=== PATIENT | male | born 1945 | race Caucasian/White ===

== ENCOUNTER 2019-05-20 03:05 | Observation (INO) ==
[2019-05-20] MEDS ORDERED: ASPIRIN CHEW 324 MG PO STA (03:19)
[2019-05-20] MEDS ORDERED: NITROGLYCERIN SL 0.4 MG/TAB TAB SL STA (03:19)
--- NOTE | 2019-05-20 03:24 | Emergency Department Note ---
ED Provider Note Name: SARAI KIRAN Age: 74 M Arrives Via: Walk-In Informant: Patient CC: HANNAH HPI: 74M arrives for evaluation of chest pain. Patient awoke around 11 pm with substernal bandlike chest pain. Pressure like. Radiates to epigastrium. Mild shortness of breath. No palpitations, nausea, vomiting, syncope, lightheadedness. No medications taken for this. Nothing makes better nor worse. Denies recent leg swelling, calf pain, fevers, chills, back pain, headache, rashes, lower abdominal pain, weakness, fatigue, urinary/bowel changes, nor other symptoms. Notes history of CABG 2 years ago. Admits history HTN, DLP. Denies DMII. Previous smoker. No recent trauma nor injuries. ROS: See above HPI for pertinent positives & negatives. A total of 10 systems reviewed and were otherwise negative. Past Medical History:Htn, CAD, DLP, GERD Past Surgical History:CABG Family History:Notes father with CA. Social History:Lives with significant other, former smoker, liberian as language Home Medications:Alirocumab IM, Aspirin, atenolol, lisiopril, nitro, pantoprazole Allergies:Mivacurium, Niacin, Statin Vitals:BP 199/94, P 53, R 16, T 36.3, O2 98% Physical Exam: GENERAL: Patient is anxious appearing and in mild distress. EYES: No scleral icterus, unremarkable pupils. ENT: Mucous membranes moist, no nasal congestion. NECK: No masses appreciated, nomeningismus, trachea is midline. RESPIRATORY: No dyspnea. Clear to auscultation and equal bilaterally. No wheeze, no rhonchi. CARDIOVASCULAR: Regular rate and rhythm.No murmurs, rubs, gallops appreciated. GASTROINTESTINAL: Abdomen soft, non-tender, no peritonitis.Bowel sounds positive.No masses appreciated. BACK: No midline tenderness, no CVA tenderness EXTREMITIES: Normal motion all extremities, no cyanosis, no edema. NEUROLOGIC: Alert and oriented, no acute motor or sensory deficits, no focal weakness, cranial nerves grossly intact. SKIN: No rash, no jaundice, no diaphoresis. ED Course: Prior Medical Record, Triage/Nursing Notes, Medications, Allergies reviewed by Me Vital Signs: reviewed and remarkable for HTN, Sanjiv Labs:Reviewed and remarkable for normal cbc, bmp, trop, lft, lipase Interventions: ASA 324mg PO, SLNTG x 2 Imaging:X ray results are stated below per my interpretation: Chest: 1 view: No infiltrate, no effusion, normal cardiac border. EKG:Per My Interpretation: Indication Chest Pain: Sinus Sanjiv 47 bpm qtc 387, no ectopy no ischemia. No previous for comparison. Consults:[facility]ist will evaluate further Blood pressure:Elevated - Referred to Hospitalist Disposition:Hostpitalization Differentials: ACS, Dissection, HTN Emergeny, Pneumothorax, PE, GERD, PUD, Ga llbladder, amongst other pathologies. Medical Decision Making: Pleasant 74 yr old male with history of CABG a few years ago arrives with HTN and substernal chest pressure. Resolved with SLNTG x 2. No abdominal TTP though did have a bit of epigastric discomfort. LFTs/Lipase OK. EKG with sinus sanjiv and no previous for comparison. Trop negative initially but quite early for cardiac rule out. Labs unremarkable. CXR OK. Patient feeling well and BP much improved post nitro as well. [facility] patient thus [facility] Management discussed with [facility] who agree to have patient stay here for rule out. Hospitalist consulted for further management and patient comfortable with plan. Impression: Substernal Chest Pain Hypertensive Emergency Otis Rapp MD Impression & Plan Substernal chest pain, Hypertensive emergency Past Med/Surg History Social History Preferred Language: Citizen Of [place] Feels Safe at Home: Yes Smoking Status: Former smoker Results & Data Vital Signs Vital Signs - 24 hr 05/20/19 03:07 05/20/19 03:16 05/20/19 03:51 Temperature 36.3 C L Temperature Source Oral Sepsis Recent Fever Within 48 Hours No Sepsis New/Unexplained Change in Mental Status No Sepsis Action Taken by Nursing No Action Required Pulse Oximetry Post Tiitration 99 Pulse Rate 53 L 45 L 50 L Pulse Rate from SpO2 Sensor 47 L 51 L Respiratory Rate 16 15 17 Blood Pressure 199/94 H 180/87 H 139/84 Blood Pressure Mean 129 118 102 Pulse Oximetry 98 98 97 Oxygen Delivery Method Room Air Room Air 05/20/19 04:00 05/20/19 04:20 05/20/19 04:30 Temperature Temperature Source Sepsis Recent Fever Within 48 Hours Sepsis New/Unexplained Change in Mental Status Sepsis Action Taken by Nursing Pulse Oximetry Post Tiitration Pulse Rate 53 L 47 L 51 L Pulse Rate from SpO2 Sensor 54 L 49 L 52 L Respiratory Rate 14 15 19 Blood Pressure 123/80 Blood Pressure Mean 94 Pulse Oximetry 92 96 96 Oxygen Delivery Method Laboratory Data Result diagrams: 05/20/19 03:16 05/20/19 03:16 Lab Results 05/20/19 05/20/19 Range/Units 03:16 03:16 WBC 5.88 (4.8-10.8) K/uL RBC 4.41 L (4.7-6.1) M/uL Hgb 13.9 L (14.0-18.0) g/dL Hct 41.0 L (42-52) % MCV 93.0 (80-100) fL MCH 31.5 (25-34) pg MCHC 33.9 (32-36) g/dL RDW Std Deviation 44.6 (36.4-46.3) fL RDW Coeff of Grazyna 13.1 (11.5-14.5) % Plt Count 172 (130-400) K/uL MPV 10.0 (7.4-10.4) fL Immature Gran % (Auto) 0.2 % Neut % (Auto) 65.6 % Lymph % (Auto) 20.9 % [place] % (Auto) 8.7 % Eos % (Auto) 4.3 % Baso % (Auto) 0.3 % Immature Gran # (Auto) 0.01 (0.00-0.02) K/uL Neut # (Auto) 3.86 (1.4-6.5) K/uL Lymph # (Auto) 1.23 (1.2-3.4) K/uL [place] # (Auto) 0.51 (0.11-0.59) K/uL Eos # (Auto) 0.25 (0-0.5) K/uL Baso # (Auto) 0.02 (0-0.2) K/uL Sodium 138 (136-145) mmol/L Potassium 3.9 (3.5-5.1) mmol/L Chloride 104 (98-107) mmol/L Carbon Dioxide 28 (21-32) mmol/L Anion Gap 6.0 (3-11) BUN 19 H (7-18) mg/dl Creatinine 1.33 (0.6-1.4) mg/dl Est Cr Clr Drug Dosing 61.9 ml/min Est GFR ( Amer) 61.0 Est GFR (Non-Af Amer) 52.7 BUN/Creatinine Ratio 14.4 (10-20) Glucose 122 H (70-99) mg/dl Calcium 8.5 (8.5-10.1) mg/dl Total Bilirubin 0.5 (0.2-1) mg/dl Direct Bilirubin 0.1 (0-0.2) mg/dl AST 23 (15-37) U/L ALT 22 (12-78) U/L Alkaline Phosphatase 68 (45-117) U/L Troponin I < 0.015 (0-0.045) ng/ml Total Protein 7.0 (6.4-8.2) gm/dl Albumin 3.6 (3.4-5.0) gm/dl Lipase 184 (73-393) U/L Administered Medications Discontinued Medications Aspirin (Aspirin) 324 mg PO NOW STA Stop: 05/20/19 03:20 Last Admin: 05/20/19 03:25 Dose: 324 mg Documented by: [id number] Nitroglycerin (Nitrostat) 0.4 mg SL NOW STA Stop: 05/20/19 03:20 Last Admin: 05/20/19 03:25 Dose: 0.4 mg Documented by: [id number] Discharge Plan Visit Data Chief Complaint: Chest Pain Stated Complaint: CHEST PAIN ED Provider: Otis Rapp Discharge Problem: Substernal chest pain, Hypertensive emergency Forms Stand Alone Forms: Call Back Authorization, [facility] Prescriptions Prescriptions: No Action Praluent Pen 150 mg/mL pen injector 150 mg SQ Q14D RF: 0 pantoprazole [Protonix] 20 mg tablet,delayed release (DR/EC) 20 mg PO DAILY RF: 0 lisinopril 5 mg tablet 5 mg PO DAILY RF: 0 aspirin [Adult Aspirin Regimen] 81 mg tablet,delayed release (DR/EC) 81 mg PO DAILY RF: 0 atenolol 25 mg tablet 25 mg PO DAILY RF: 0 nitroglycerin [Nitrostat] 0.4 mg tablet, sublingual 0.4 mg SL Q5M PRN (Reason: Chest Pain) RF: 0 simethicone 250 mg Capsule 250 mg PO DAILY RF: 0 Referrals Referrals: Florentino Pulido [Primary Care Provider] -
[2019-05-20 03:31] LABS: Basophils # (auto) 0.02 K/uL (0-0.2); Basophils % (auto) 0.3 %; Eosinophils # (auto) 0.25 K/uL (0-0.5); Eosinophils % (auto) 4.3 %; Hemoglobin 13.9 g/dL (14.0-18.0); Immature Granulocytes # (auto) 0.01 K/uL (0.00-0.02); Immature Granulocytes % (auto) 0.2 %; Lymphocytes # (auto) 1.23 K/uL (1.2-3.4); Lymphocytes % (auto) 20.9 %; Mean Corpuscular Hemoglobin 31.5 pg (25-34); Mean Corpuscular Hgb Conc 33.9 g/dL (32-36); Monocytes # (auto) 0.51 K/uL (0.11-0.59); Monocytes % (auto) 8.7 %; Neutrophils # (auto) 3.86 K/uL (1.4-6.5); Neutrophils % (auto) 65.6 %; Platelet Count 172 K/uL (130-400); RDW Coefficient of Variation 13.1 % (11.5-14.5); RDW Standard Deviation 44.6 fL (36.4-46.3); Red Blood Count 4.41 M/uL (4.7-6.1); White Blood Count 5.88 K/uL (4.8-10.8)
[2019-05-20 03:51] LABS: Alanine Aminotransferase 22 U/L (12-78); Albumin Level 3.6 gm/dl (3.4-5.0); Aspartate Aminotransferase 23 U/L (15-37); BUN Creatinine Ratio 14.4 (10-20); Bilirubin Direct 0.1 mg/dl (0-0.2); Blood Urea Nitrogen 19 mg/dl (7-18); Calcium 8.5 mg/dl (8.5-10.1); Carbon Dioxide 28 mmol/L (21-32); Chloride 104 mmol/L (98-107); Creatinine Clr Calc Pharmacy 61.9 ml/min; Est GFR (Non-African American) 52.7; Glucose 122 mg/dl (70-99); Lipase 184 U/L (73-393); Potassium 3.9 mmol/L (3.5-5.1); Sodium 138 mmol/L (136-145)
[2019-05-20 03:56] LABS: Alkaline Phosphatase 68 U/L (45-117); Bilirubin,Total 0.5 mg/dl (0.2-1); Troponin I < 0.015 ng/ml (0-0.045)
--- NOTE | 2019-05-20 04:59 | History & Physical Report ---
Date of Service May 20, 2019 Assessment & Plan (1) Substernal chest pain: This is a 74-year-old male with history of CABG x3, 2 years ago who presents with substernal chest pressure associated with the onset of bloating since 11 PM. He states the pain began at 11 PM which was 30 minutes after he tried to go to bed. He states the pain took his breath away. He states he is tried walking around in order to promote flatulence and normally this helps him, but this evening it did not and he stayed up all night with the pain. Because the pain in his abdomen and chest persisted for 4 hours he called EMS. He did not take any of his nitroglycerin that he has at home. He endorses some shortness of breath with the pain. He also endorses elevated blood pressure with the pain, notes his systolic was 200. He denies orthopnea, paroxysmal nocturnal dyspnea, bilateral leg swelling, dysuria, diarrhea, constipation. He denies any radiation of the pain into his arms or jaw. He denies any blurred vision or syncope. He notes he has a history of low heart rate but denies any issues with this. He is followed by his associate faculty with the MD. He saw them 2 weeks ago, no changes to medications were made. He denies a history of sleep apnea. Social history: He lives with his partner Irina. Quit smoking in 1995. Occasional alcohol use up to 2 drinks in one sitting. No drug use. ED course: Nitrostat and aspirin. Assessment: Atypical chest pain -EKG says sinus bradycardia, no dynamic ST changes. -CXR appears nonacute. -Initial troponin negative. -CBC and BMP otherwise unremarkable. -Pain is resolved with nitroglycerin. -Vitals remained stable, no additional anti-hypertensives were necessary in the emergency room. Plan: -Observe on telemetry -Daily EKGs -Trend troponins -TTE FEN/GI: HH diet DVT ppx: heparin sq CODE STATUS: FULL as discussed with pt -- however he states he would not want prolonged mechanical ventilation if there was no meaningful hope of recovery. He does have children and a partner who understand his wishes. DISPO: med/tele (2) Benign essential hypertension: Continue home atenolol, lisinopril. 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 14 days. (4) Bloating: Continue home simethicone. -Discussed with patient physiologic mechanism of pain with bloating that would increase his blood pressure. Recommend checking blood pressure when bloating symptoms resolve and patient is at rest for at least 5 minutes. Patient verbalized understanding with this. He has ongoing follow-up with gastroente rology including an upcoming hydrogen breath test. History of Present Illness Chief Complaint: Substernal chest pressure associated with bloating Primary Care Provider: Florentino Pulido This is a 74-year-old male with history of CABG x3, 2 years ago who presents with substernal chest pressure associated with the onset of bloating since 11 PM. He states the pain began at 11 PM which was 30 minutes after he tried to go to bed. He states the pain took his breath away. He states he is tried walking around in order to promote flatulence and normally this helps him, but this evening it did not and he stayed up all night with the pain. Because the pain in his abdomen and chest persisted for 4 hours he called EMS. He endorses some shortness of breath with the pain. He also endorses elevated blood pressure with the pain, notes his systolic was 200. He denies orthopnea, paroxysmal nocturnal dyspnea, bilateral leg swelling, dysuria, diarrhea, constipation. He denies any radiation of the pain into his arms or jaw. He denies any blurred vision or syncope. He notes he has a history of low heart rate but denies any issues with this. He is followed by his associate faculty with the MD. He saw them 2 weeks ago, no changes to medications were made. He denies a history of sleep apnea. Social history: He lives with his partner Irina. Quit smoking in 1995. Occasional alcohol use up to 2 drinks in one sitting. No drug use. ED course: Nitrostat and aspirin. Allergies Allergy/AdvReac Type Severity Reaction Status Date / Time azithromycin [From Zithromax] AdvReac Intermediate Vomiting Verified 05/20/19 03:45 mivacurium AdvReac Intermediate VOMITING Verified 05/20/19 03:45 niacin AdvReac Intermediate HEAT Verified 05/20/19 03:45 FLASHES CHOLESTEROL MEDICATIONS AdvReac Intermediate MUSCLE Uncoded 05/20/19 03:45 SORENESS, CAN'T WALK Home Medications Home Medications Medication Instructions Recorded Confirmed Type alirocumab 150 mg/mL subcutaneous 150 mg SQ Q14D 04/27/19 05/20/19 History pen injector aspirin 81 mg tablet,delayed 81 mg PO DAILY 04/27/19 05/20/19 History release atenolol 25 mg tablet 25 mg PO DAILY 04/27/19 05/20/19 History lisinopril 5 mg tablet 5 mg PO DAILY 04/27/19 05/20/19 History nitroglycerin 0.4 mg sublingual 0.4 mg SL Q5M PRN 04/27/19 05/20/19 History tablet pantoprazole 20 mg tablet,delayed 20 mg PO DAILY 04/27/19 05/20/19 History release simethicone 250 mg PO DAILY 05/20/19 05/20/19 History Past Med/Surg History Medical History Bloating (Chronic) Coronary artery disease with hx of myocardial infarct w/o hx of CABG (Chronic) Benign essential hypertension (Chronic) Social History Preferred Language: [place] Communication Ability: Effective Health Technical Writer Required: No Beliefs That Will Affect Care: None Current Living Situation: Alone Other Information That Helps Us Care for You: No Feels Safe at Home: Yes Safety Concerns: Feels Safe At This Time Smoking Status: Never smoker Hx Alcohol Use: No Hx Substance Use: No Review of Systems Review of Systems: +chest pain. He endorses some shortness of breath with the pain. He also endorses elevated blood pressure with the pain, notes his systolic was 200. He denies orthopnea, paroxysmal nocturnal dyspnea, bilateral leg swelling, dysuria, diarrhea, constipation. He denies any radiation of the pain into his arms or jaw. He denies any blurred vision or syncope. He notes he has a history of low heart rate but denies any issues with this. Physical Exam Physical Exam: Vitals noted and within normal limits with the exception of mild bradycardia GENERAL: Awake, alert to person, place, and time, nontoxic-appearing, in no distress. HENT: Normocephalic, atraumatic. Mucus membranes appear moist. EYES: Normal conjunctiva. Sclera non-icteric. EOMI. NECK: Supple. Full range of motion. No JVD. RESPIRATORY: Clear to auscultation. Normal work of breathing. CARDIAC: Regular rate, normal rhythm. Extremities warm and well perfused, 2+ radial pulses bilaterally; 2+ posterior tibialis pulses bilaterally. ABDOMEN: Soft, non-distended. No tenderness to palpation in all four quadrants. No rebound or guarding. No masses. Bowel sounds are normal. LOWER EXTREMITIES: Inspection of calves reveal equal size bilaterally. They are non-tender. No edema. No discoloration. NEURO: No gross focal motor deficits noted. Sensation in tact. CN II-XII grossly in tact. . SKIN: Rash not present. No jaundice noted. Significant lesions not present. PSYCH: Appropriate mood and affect. Cooperative. Exam as done by Tamie Lazo MD, [employer]. Results & Data Vital Signs (Past 12 Hours) Vital Signs Temp Pulse Resp BP Pulse Ox 05/20/19 04:30 51 L 19 96 05/20/19 04:20 47 L 15 96 05/20/19 04:00 53 L 14 123/80 92 05/20/19 03:51 50 L 17 139/84 97 05/20/19 03:16 45 L 15 180/87 H 98 05/20/19 03:07 36.3 C L 53 L 16 199/94 H 98 Laboratory Results 05/20/19 05/20/19 Range/Units 03:16 03:16 WBC 5.88 (4.8-10.8) K/uL RBC 4.41 L (4.7-6.1) M/uL Hgb 13.9 L (14.0-18.0) g/dL Hct 41.0 L (42-52) % MCV 93.0 (80-100) fL MCH 31.5 (25-34) pg MCHC 33.9 (32-36) g/dL RDW Std Deviation 44.6 (36.4-46.3) fL RDW Coeff of Grazyna 13.1 (11.5-14.5) % Plt Count 172 (130-400) K/uL MPV 10.0 (7.4-10.4) fL Immature Gran % (Auto) 0.2 % Neut % (Auto) 65.6 % Lymph % (Auto) 20.9 % [place] % (Auto) 8.7 % Eos % (Auto) 4.3 % Baso % (Auto) 0.3 % Immature Gran # (Auto) 0.01 (0.00-0.02) K/uL Neut # (Auto) 3.86 (1.4-6.5) K/uL Lymph # (Auto) 1.23 (1.2-3.4) K/uL [place] # (Auto) 0.51 (0.11-0.59) K/uL Eos # (Auto) 0.25 (0-0.5) K/uL Baso # (Auto) 0.02 (0-0.2) K/uL Sodium 138 (136-145) mmol/L Potassium 3.9 (3.5-5.1) mmol/L Chloride 104 (98-107) mmol/L Carbon Dioxide 28 (21-32) mmol/L Anion Gap 6.0 (3-11) BUN 19 H (7-18) mg/dl Creatinine 1.33 (0.6-1.4) mg/dl Est Cr Clr Drug Dosing 61.9 ml/min Est GFR ( Amer) 61.0 Est GFR (Non-Af Amer) 52.7 BUN/Creatinine Ratio 14.4 (10-20) Glucose 122 H (70-99) mg/dl Calcium 8.5 (8.5-10.1) mg/dl Total Bilirubin 0.5 (0.2-1) mg/dl Direct Bilirubin 0.1 (0-0.2) mg/dl AST 23 (15-37) U/L ALT 22 (12-78) U/L Alkaline Phosphatase 68 (45-117) U/L Troponin I < 0.015 (0-0.045) ng/ml Total Protein 7.0 (6.4-8.2) gm/dl Albumin 3.6 (3.4-5.0) gm/dl Lipase 184 (73-393) U/L Supervising Physician Co-Signing Physician Notes Attending addendum: I have physically seen this patient, have supervised the medical residents act ivities, and agree with the H&P unless as otherwise noted. Assessment and Plan: Substernal chest pain with shortness of breath/CABG x3/CAD/history of OK- The patient will be admitted to telemetry for serial cardiac enzymes, serial EKG's, cardiac rhythm monitoring and a 2-D echocardiogram with Dopplers. Continue home medications of atenolol, lisinopril and aspirin 81 mg daily. Abdominal bloating may be anginal equivalent. GERD/abdominal bloating- Continue pantoprazole 20 mg daily. Simethicone as directed. Remainder of orders and notations as noted. PG Care Time/CCT Total # of Minutes Spent Total Time Spent with Patient: Total time spent is greater than 50% in coordination of care (as documented) at patient's floor/unit and/or counseling patient: Resident Activity Tracking Resident Involvement: Resident Care Provided Care Provided: Adult Hospital Medicine
[2019-05-20] MEDS ORDERED: POLYETHYLENE (MIRALAX) 17 GM PACK PO PRN (06:47)
[2019-05-20] MEDS ORDERED: MAGNESIUM HYDROXIDE SUSP 30 ML UDC PO PRN (06:47)
[2019-05-20] MEDS ORDERED: ALUMINUM/MAGNESIUM SUSP 30 ML UDC PO PRN (06:47)
[2019-05-20] MEDS ORDERED: NITROGLYCERIN SL 0.4 MG/TAB TAB SL PRN ×2 (06:47)
[2019-05-20] MEDS ORDERED: ACETAMINOPHEN 325 MG TAB PO PRN (06:47)
--- NOTE | 2019-05-20 06:56 | XRay Report ---
XR chest 1V portable CLINICAL HISTORY: Substernal CP COMPARISON STUDY: No previous studies for comparison. FINDINGS: There are postsurgical changes of a midline sternotomy. There is no failure. There is no fo sangita pulmonary consolidation. There are no pleural effusions.[ IMPRESSION: No active disease in the chest. Electronically signed by: Arias Smith M.D. 05/20/2019 6:55 AM
[2019-05-20] MEDS ORDERED: SIMETHICONE 80 MG CHEW PO SCH (09:00)
[2019-05-20] MEDS ORDERED: ASPIRIN 81 MG ECTAB PO SCH (09:00)
[2019-05-20] MEDS ORDERED: PANTOprazole 40 MG TAB PO SCH (09:00)
[2019-05-20] MEDS ORDERED: ATENOLOL 25 MG TABLET PO SCH ×2 (09:00→21:00)
[2019-05-20] MEDS ORDERED: HEPARIN SOD 5,000 UNIT/0.5 ML VIAL SQ SCH (09:00)
[2019-05-20] MEDS ORDERED: lisinopriL 5 MG TAB PO SCH (09:00)
--- NOTE | 2019-05-20 14:00 | Discharge Summary ---
Date of Service May 20, 2019 Admission HPI Per Admitting Provider This is a 74-year-old male with history of CABG x3, 2 years ago who presents with substernal chest pressure associated with the onset of bloating since 11 PM. He states the pain began at 11 PM which was 30 minutes after he tried to go to bed. He states the pain took his breath away. He states he is tried walking around in order to promote flatulence and normally this helps him, but this evening it did not and he stayed up all night with the pain. Because the pain in his abdomen and chest persisted for 4 hours he called EMS. He endorses some shortness of breath with the pain. He also endorses elevated blood pressure with the pain, notes his systolic was 200. He denies orthopnea, paroxysmal nocturnal dyspnea, bilateral leg swelling, dysuria, diarrhea, constipation. He denies any radiation of the pain into his arms or jaw. He denies any blurred vision or syncope. He notes he has a history of low heart rate but denies any issues with this. [facility] He [facility] 2 weeks ago, no changes to medications were made. He denies a history of sleep apnea. Social history: He lives with his partner Irina. Quit smoking in 1995. Occasional alcohol use up to 2 drinks in one sitting. No drug use. ED course: Nitrostat and aspirin. Admission Exam Per Admitting Provider Vitals noted and within normal limits with the exception of mild bradycardia GENERAL: Awake, alert to person, place, and time, nontoxic-appearing, in no distress. HENT: Normocephalic, atraumatic. Mucus membranes appear moist. EYES: Normal conjunctiva. Sclera non-icteric. EOMI. NECK: Supple. Full range of motion. No JVD. RESPIRATORY: Clear to auscultation. Normal work of breathing. CARDIAC: Regular rate, normal rhythm. Extremities warm and well perfused, 2+ radial pulses bilaterally; 2+ posterior tibialis pulses bilaterally. ABDOMEN: Soft, non-distended. No tenderness to palpation in all four quadrants. No rebound or guarding. No masses. Bowel sounds are normal. LOWER EXTREMITIES: Inspection of calves reveal equal size bilaterally. They are non-tender. No edema. No discoloration. NEURO: No gross focal motor deficits noted. Sensation in tact. CN II-XII grossly in tact. . SKIN: Rash not present. No jaundice noted. Significant lesions not present. PSYCH: Appropriate mood and affect. Cooperative. Principal Diagnosis Atypical chest pain Suspected esophageal spasm Discharge Exam Constitutional well developed Eyes + anicteric sclerae and PERRL ENMT external ear and nose normal, oropharynx normal Neck trachea midline Respiratory normal respiratory effort, lungs clear to auscultation Cardiovascular RRR, no murmur, no edema Gastrointestinal (Abdomen) normal bowel sounds, soft, nontender, no hepatosplenomegaly Musculoskeletal no cyanosis or clubbing, extremities motor strength 5/5 Skin no rashes, warm and dry Neurologic moves all extremities and awake; no focal motor deficits and not confused Motor/Sensory: no pronator drift Psychiatric A+Ox3, euthymic affect Discharge Data Allergies Allergy/AdvReac Type Severity Reaction Status Date / Time azithromycin [From Zithromax] AdvReac Intermediate Vomiting Verified 05/20/19 03:45 niacin AdvReac Intermediate HEAT Verified 05/20/19 03:45 FLASHES CHOLESTEROL MEDICATIONS AdvReac Intermediate MUSCLE Uncoded 05/20/19 03:45 SORENESS, CAN'T WALK Consultations 05/20/19 04:31 ED Decision to Admit Stat Hospital Course (1) Substernal chest pain: Mr Navas was observed in hospital due to an episode of chest pain. Similar to previous episodes with prior negative cardiac workup - occurring at rest and starting on lying flat with prior cardiac workup including stress testing negative. 9 hour troponin (cardiac enzyme) was negative. Suspect cause is esophageal spasm brought on by GERD given improvement with nitroglycerin. Recommend following up with your lamination operator regarding this. Given infrequency of episodes and normal prior endoscopy no further inpatient workup warranted at this time. Recommend keeping a food diary to see if there is a correlation and sleeping with slight elevation to avoid further episodes. No regional wall abnormalities noted on echocardiogram. (2) Benign essential hypertension: (3) Coronary artery disease with hx of myocardial infarct w/o hx of CABG: (4) Bloating: Total Time Total Time Spent Total Time Spent (In Minutes): 50 Total Time Includes: Examination of the Patient, Discharge Planning and Medication Reconciliation Discharge Plan Discharge Items Patient Disposition: Home - Self-Care Reason For Visit: CHEST PAIN Discharge Diagnosis: Atypical chest pain Suspected esophageal spasm Activity: Resume your previous activity Non-emergency contact: Primary Care Provider Call non-emergency contact if: you have any medication questions and your symptoms worsen Follow-up/Referrals: Florentino Pulido, [Primary Care Provider] - Diet: Heart Healthy Addtl Attending Provider Instructions: You were observed in hospital due to an episode of chest pain. Similar to previous episodes occurring at rest and starting on lying flat with prior cardiac workup including stress testing negative. 9 hour troponin (cardiac enzyme) was negative. Suspect cause is esophageal spasm given improvement with nitroglycerin. Recommend following up with your lamination operator regarding this. Given infrequency of episodes and normal prior endoscopy no further inpatient workup warranted at this time. Recommend keeping a food diary to see if there is a correlation and sleeping with slight elevation to avoid further episodes. Pending Studies at Discharge: No Stand-Alone Forms: Call Back Authorization, [facility] Medications and DC Order Prescriptions: Continued Praluent Pen 150 mg/mL pen injector 150 mg SQ Q14D RF: 0 pantoprazole [Protonix] 20 mg tablet,delayed release (DR/EC) 20 mg PO DAILY RF: 0 lisinopril 5 mg tablet 5 mg PO DAILY RF: 0 aspirin [Adult Aspirin Regimen] 81 mg tablet,delayed release (DR/EC) 81 mg PO DAILY RF: 0 atenolol 25 mg tablet 25 mg PO DAILY RF: 0 nitroglycerin [Nitrostat] 0.4 mg tablet, sublingual 0.4 mg SL Q5M PRN (Reason: Chest Pain) RF: 0 simethicone 250 mg Capsule 250 mg PO DAILY RF: 0 Discharge Orders: Discharge Order (Routine); Ordered 05/20/19 Ordered By: Cali Howell Admission Data Admit Date/Time: 05/20/19 06:09 Attending Provider: Cali Howell Admit Provider: Tamie Lazo Primary Care Provider: Florentino Pulido Other Providers: Rupesh Nguyen Other Interventions: Discharge Summary Assessment (RN) Last Done: 05/20/19 14:24 DC Date/Time DO NOT enter until pt leaves facility: 05/20/19 14:57
== END 2019-05-20 14:57 | disposition home or self-care (01) ==
LOC: ED 03:05 → 2S 03:05 → SUATTDRO 06:09 → 2S 06:32

== ENCOUNTER 2022-06-14 02:35 | Observation (INO) ==
--- NOTE | 2022-06-14 03:04 | Emergency Department Note ---
History of Present Illness General Chief complaint: Chest Pain Stated complaint: CHEST PAIN Time Seen by Provider: 06/14/22 02:53 History of Present Illness Maximum Pain Intensity: 6 This 77-year-old who had his gallbladder out on Saturday presents to the ER complaining of right upper quadrant pain and shortness of breath for the past day steadily getting worse Location: Right upper quadrant Quality: Painful Severity: Moderate Duration: Past 2 days Timing: Started Saturday Context: Symptoms got worse and patient came in Modifying factors: better with rest; worse with activity Patient states initially he felt fine after the surgery but the next day started getting pain and is gotten progressively more short of breath. He was concerned and came in tonight. Patient denies fevers, vomiting, diarrhea. He has been moving his bowels. Decreased appetite but is eating. Home Medications Medication Instructions Recorded Confirmed Type alirocumab 150 mg/mL subcutaneous 150 mg subcut Q14D 04/27/19 06/11/22 History pen injector (Praluent Pen) aspirin 81 mg tablet,delayed 81 mg PO QAM 04/27/19 06/11/22 History release (Adult Aspirin Regimen) atenolol 25 mg tablet 25 mg PO HS 04/27/19 06/11/22 History nitroglycerin 0.4 mg sublingual 0.4 mg sublingual Q5M PRN Chest 04/27/19 06/11/22 History tablet (Nitrostat) Pain cholecalciferol (vitamin D3) 25 25 mcg PO QAM 01/21/20 06/11/22 History mcg (1,000 unit) tablet simethicone 250 mg capsule 125 mg PO BID PRN gas relief 01/21/20 06/11/22 History famotidine 20 mg tablet (Pepcid) 20 mg PO BID 06/04/22 06/11/22 History lisinopril 10 mg tablet 10 mg PO QAM 06/04/22 06/11/22 History oxycodone-acetaminophen 5 mg-325 1 tab PO Q6H PRN pain #10 tabs 06/11/22 Rx mg tablet (Percocet) Allergies Allergy/AdvReac Type Severity Reaction Status Date / Time adhesive tape Allergy Mild Unknown Verified 06/11/22 11:13 fluvastatin Allergy Mild Unknown Verified 06/11/22 11:13 lovastatin [From Mevacor] Allergy Mild Unknown Verified 06/11/22 11:13 pravastatin Allergy Mild Unknown Verified 06/11/22 11:13 rosuvastatin [From Crestor] Allergy Mild Unknown Verified 06/11/22 11:13 simvastatin [From Zocor] Allergy Mild Unknown Verified 06/11/22 11:13 prednisone Allergy Unknown Unknown Verified 06/11/22 12:58 azithromycin [From Zithromax] AdvReac Intermediate Vomiting Verified 06/11/22 11:13 niacin AdvReac Intermediate HEAT Verified 06/11/22 11:13 FLASHES ezetimibe [From Zetia] AdvReac Mild Muscle Pain Verified 06/11/22 11:13 Past Med/Surg History Medical History Aortic aneurysm repaired in 2020. Benign essential hypertension Coronary artery disease Degenerative disc disease Diverticulosis of colon GERD (gastroesophageal reflux disease) Hx of gastric ulcer Hyperlipidemia Myocardial Infarction reason for bypass in 2016 -- "maybe the starts of a heart attack, I had the symptoms" Osteoarthritis Surgical History H/O colonoscopy (~2018) H/O oral surgery x5 molars removed History of cardiac cath x3 --> unsure if there were stents. History of coronary artery bypass graft x 3 (~2016) [facility] in [place]. History of esophagogastroduodenoscopy (EGD) History of knee replacement (~2009) bilateral History of surgical procedure on eye proper using laser S/P AAA repair (2020) [facility] in [place]. follows with [facility] in [place]. Status post surgery interventional radiology at [facility] April 05, 2022 had a drain placed for his infected gallbladder Family History Other No family history of adverse response to anesthesia Social History Smoking Status: Never smoker Tobacco Type: Cigarettes Second Hand Exposure: No; Hx Alcohol Use: Yes Alcohol type: beer Alcohol Intake Frequency: 2-4 x/Month Hx Substance Use: No Preferred Language: Polish Communication Ability: Effective Classification Officer Required: No Beliefs That Will Affect Care: None marital status: / Current Living Situation: Significant Other current occupational status: retired How many Children do You have: 2 Feels Safe at Home: Yes during the past year weight has: remained stable Assistive Devices: Denture - Upper, Glasses and Hearing Aid - Bilateral Review of Systems A total of 10 systems reviewed and were otherwise negative Physical Exam Vital Signs Vital Signs - 24 hr 06/14/22 02:38 06/14/22 02:53 06/14/22 03:00 Temperature 36.9 C Temperature Source Temporal Artery Scan Pulse Rate 72 67 Pulse Rate from SpO2 Sensor 69 Respiratory Rate 18 22 Respiratory Effort / Characteristics Non-Labored Spontaneous Respiratory Depth Normal Blood Pressure 190/86 H 158/86 H Blood Pressure Mean 120 110 Blood Pressure Position Sitting Pulse Oximetry 92 93 Oxygen Delivery Method Room Air Sepsis Recent Fever Within 48 Hours No Sepsis New/Unexplained Change in Mental Status No Sepsis Action Taken by Nursing No Action Required 06/14/22 03:00 06/14/22 03:30 06/14/22 03:30 Temperature Temperature Source Pulse Rate 69 68 Pulse Rate from SpO2 Sensor 69 Respiratory Rate 19 23 Respiratory Effort / Characteristics Respiratory Depth Blood Pressure 152/84 H Blood Pressure Mean 106 Blood Pressure Position Pulse Oximetry 92 Oxygen Delivery Method Sepsis Recent Fever Within 48 Hours Sepsis New/Unexplained Change in Mental Status Sepsis Action Taken by Nursing 06/14/22 04:00 06/14/22 04:00 06/14/22 04:30 Temperature Temperature Source Pulse Rate 69 Pulse Rate from SpO2 Sensor Respiratory Rate 18 Respiratory Effort / Characteristics Respiratory Depth Blood Pressure 163/92 H 167/96 H Blood Pressure Mean 115 119 Blood Pressure Position Pulse Oximetry Oxygen Delivery Method Sepsis Recent Fever Within 48 Hours Sepsis New/Unexplained Change in Mental Status Sepsis Action Taken by Nursing 06/14/22 04:30 06/14/22 05:00 06/14/22 05:00 Temperature Temperature Source Pulse Rate 66 71 Pulse Rate from SpO2 Sensor 67 Respiratory Rate 20 18 Respiratory Effort / Characteristics Respiratory Depth Blood Pressure 172/96 H Blood Pressure Mean 121 Blood Pressure Position Pulse Oximetry 92 Oxygen Delivery Method Sepsis Recent Fever Within 48 Hours Sepsis New/Unexplained Change in Mental Status Sepsis Action Taken by Nursing VITALS: Vitals are noted on the nurse's note and reviewed by myself. Vital signs stable. GENERAL: Pleasant male, in no acute distress, nondiaphoretic, well-developed well-nourished. SKIN: The skin was without rashes, erythema, edema, or bruising. There is no tenting of the skin. Capillary reflex less than 2 seconds. HEAD: Normocephalic atraumatic. EARS: External auditory canals clear, EYES: Pupils equal round and reactive to light and accommodation. Conjunctivae without injection, sclerae without icterus. Extraocular movements intact. NOSE: Patent, turbinates without inflammation or discharge. MOUTH: Mucous membranes moist. Pharynx without erythema or exudate. Uvula midline. Airway patent. Tongue does not deviate. NECK: Supple without nuchal rigidity. No lymphadenopathy. No thyromegaly. Cervical spine is nontender. No JVD. HEART: Regular rate and rhythm LUNGS: Clear to auscultation bilaterally without wheezes, rales or rhonchi. No retractions or accessory muscle use. ABDOMEN: Positive bowel sounds x 4. Normal tympanic percussion. Soft, incisional scars intact, right upper quadrant tender to palpation, without masses or organomegaly. No guarding or rebound tenderness. No CVA tenderness MUSCULOSKELETAL: No muscle atrophy, erythema, or edema noted. NEURO: Patient was alert and oriented to person place and time. Normal sensation to light and sharp touch. No focal neurological deficits. Course Administered Medications Discontinued Medications Piperacillin Sod/Tazobactam Sod (Zosyn) 4.5 gm in 120 mls @ 240 mls/hr IV NOW ONE Stop: 06/14/22 04:56 Last Infusion: 06/14/22 05:08 Dose: 0 mls/hr Documented By: Admin: 06/14/22 04:32 Dose: 240 mls/hr Documented By: JANI Ioversol (Optiray 320 500ml) 125 ml IV ONCE ONE Stop: 06/14/22 03:59 Last Admin: 06/14/22 03:58 Dose: 112 ml Documented By: FELECIA Morphine Sulfate (Morphine Sulfate 4 Mg/Ml 1 Ml Carp\\Vial) 4 mg IV NOW STA Stop: 06/14/22 04:44 Last Admin: 06/14/22 04:49 Dose: 4 mg Documented By: BRANDI Medical Decision Making Medical Records Attestation: I reviewed the patient's medical records. Home Medications Current Medication List: was personally reviewed by me Laboratory Data Attestation: I reviewed the patient's lab results. Result diagrams: 06/14/22 02:58 06/14/22 02:58 Lab Results 06/14/22 06/14/22 06/14/22 Range/Units 02:58 02:58 04:23 WBC 8.57 (4.8-10.8) K/ul RBC 4.48 L (4.63-6.08) M/uL Hgb 14.3 (14.0-18.0) g/dl Hct 42.2 (40.1-51.0) % MCV 94.2 (80.0-100.0) fL MCH 31.9 (25.0-34.0) pg MCHC 33.9 (32.0-36.0) g/dL RDW Std Deviation 44.2 (36.4-46.3) fL RDW Coeff of Grazyna 12.9 (11.5-14.5) % Plt Count 146 (130-400) K/uL MPV 10.3 (9.4-12.4) fL Immature Gran % (Auto) 0.4 % Neut % (Auto) 73.4 % Lymph % (Auto) 12.5 % [place] % (Auto) 8.8 % Eos % (Auto) 4.7 % Baso % (Auto) 0.2 % Neut # (Auto) 6.30 (1.4-6.5) K/uL Lymph # (Auto) 1.07 L (1.2-3.4) K/uL [place] # (Auto) 0.75 (0.24-0.82) K/uL Eos # (Auto) 0.40 (0-0.50) K/uL Baso # (Auto) 0.02 (0-0.2) K/uL Immature Gran # (Auto) 0.03 H (0.00-0.02) K/uL Sodium 134 L (136-145) mmol/L Potassium 4.1 (3.5-5.1) mmol/L Chloride 102 (98-107) mmol/L Carbon Dioxide 26 (21-32) mmol/L Anion Gap 6 (3-11) BUN 19 (6-23) mg/dl Creatinine 1.11 (0.6-1.4) mg/dl Est Cr Clr Drug Dosing 70.0 ml/min Est GFR ( Amer) 74.4 ml/min Est GFR (Non-Af Amer) 64.2 ml/min BUN/Creatinine Ratio 17.1 (10-20) Glucose 120 H (70-99(Fasting)) mg/dl Calcium 8.9 (8.5-10.1) mg/dl Total Bilirubin 1.0 (0.2-1.0) mg/dl AST 19 (13-39) U/L ALT 21 (7-52) U/L Alkaline Phosphatase 71 (34-104) U/L Troponin I High Sens 7.4 6.8 (0-20) pg/ml Total Protein 6.9 (6.0-8.3) gm/dl Albumin 4.0 (3.4-5.0) gm/dl Globulin 2.9 (2.5-4.0) gm/dl Albumin/Globulin Ratio 1.4 (0.9-2) Lipase 43 (11-82) U/L SARS-CoV-2, RNA, NAAT (NEGATIVE) 06/14/22 Range/Units 04:58 WBC (4.8-10.8) K/ul RBC (4.63-6.08) M/uL Hgb (14.0-18.0) g/dl Hct (40.1-51.0) % MCV (80.0-100.0) fL MCH (25.0-34.0) pg MCHC (32.0-36.0) g/dL RDW Std Deviation (36.4-46.3) fL RDW Coeff of Grazyna (11.5-14.5) % Plt Count (130-400) K/uL MPV (9.4-12.4) fL Immature Gran % (Auto) % Neut % (Auto) % Lymph % (Auto) % [place] % (Auto) % Eos % (Auto) % Baso % (Auto) % Neut # (Auto) (1.4-6.5) K/uL Lymph # (Auto) (1.2-3.4) K/uL [place] # (Auto) (0.24-0.82) K/uL Eos # (Auto) (0-0.50) K/uL Baso # (Auto) (0-0.2) K/uL Immature Gran # (Auto) (0.00-0.02) K/uL Sodium (136-145) mmol/L Potassium (3.5-5.1) mmol/L Chloride (98-107) mmol/L Carbon Dioxide (21-32) mmol/L Anion Gap (3-11) BUN (6-23) mg/dl Creatinine (0.6-1.4) mg/dl Est Cr Clr Drug Dosing ml/min Est GFR ( Amer) ml/min Est GFR (Non-Af Amer) ml/min BUN/Creatinine Ratio (10-20) Glucose (70-99(Fasting)) mg/dl Calcium (8.5-10.1) mg/dl Total Bilirubin (0.2-1.0) mg/dl AST (13-39) U/L ALT (7-52) U/L Alkaline Phosphatase (34-104) U/L Troponin I High Sens (0-20) pg/ml Total Protein (6.0-8.3) gm/dl Albumin (3.4-5.0) gm/dl Globulin (2.5-4.0) gm/dl Albumin/Globulin Ratio (0.9-2) Lipase (11-82) U/L SARS-CoV-2, RNA, NAAT NEGATIVE (NEGATIVE) Imaging Data Attestation: I personally reviewed and interpreted this imaging study as follows: MDM Narrative Prior records/ancillary studies reviewed. Triage Nursing notes reviewed. Additional history obtained from family. The patient's history was concerning for abdomen and chest pain. Differential diagnosis: Etiologies such as postsurgical complication, intra-abdominal, cardiac ischem ia, aortic dissection, pulmonary embolism, pneumonia, pneumothorax, musculoskeletal, infections, pericarditis, myocarditis, esophageal rupture, gastrointestinal, as well as others were entertained. Physical examination: As above. ER treatment provided: An order was placed for continuous cardiac monitoring. The monitor shows a rate of 60-100 with a sinus rhythm. Patient declined pain meds Patient agreed to take some pain meds and he was given incentive spirometry and Zosyn On reassessment the patient felt better. Diagnostic interpretation by me: The electrocardiogram was ordered for chest pain EKG: Normal sinus, normal intervals, no acute ST-T wave changes. Impression normal sinus rhythm rate of 70 interpreted by myself I think arrhythmia is unlikely. EKG shows normal sinus rhythm with no interval abnormalities such as QT prolongation or WPW. There are no findings to suggest Brugada syndrome. Cardiac monitoring in the emergency department reveals no tachycardic or bradycardic dysrhythmia. Hypertrophic cardiomyopathy was considered but there are no clear historical elements pointing toward this. EKG is not suggestive. The QRS voltage is not extremely large and there are no suggestive Q waves. The labs revealed no worrisome leukocytosis, negative troponin x2 Imaging studies: CT ABDOMEN & PELVIS With Contrast: Patient status post laparoscopic cholecystectomy. Trace fluid noted in the gallbladder fossa which is within the range of normal Infrarenal AAA incidentally noted measuring 3.4 x 2.6 cm The appendix is normal Colonic diverticulosis noted without inflammation Ventral abdominal wall hernia are present the most superior of which contains t he anterior wall of a segment of the transverse colon compatible with a Ventura hernia. Residual pneumoperitoneum noted which is nonspecific status post recent laparoscopic cholecystectomy Radiologist: Shashank Mayberry MD CTA CHEST: Ascending thoracic aortic aneurysm measures 4.1 x 4.2 cm without dissection Negative for PE Dense basilar opacities more prominent on the right than on the left likely reflect dense atelectasis Bronchial wall thickening compatible with nonspecific bronchial inflammation or reactive airways disease Radiologist: Orestes Mclean HEART SCORE: Hx: high/mod/low suspicion: 0 ECG: ST depression/nonspecific changes/normal: 0 Age: Greater than 65/45-64/less than 45: 2 Risk factors: (Hypertension, hyperlipidemia, diabetes, coronary disease, tobacco use, cocaine use): 2 Troponin: Greater than 2 times normal limits/1-2 times normal limits/normal: 0 Total: 4 Exam and history seem consistent with postsurgical pain with possible bronchitis. Patient still in severe amount of pain. He does not feel comfortable going home. Medicine was consulted. He will be evaluated for possible admission. He started incentive spirometry. He is given pain meds. He was given antibiotics. 2 negative troponins. Normal EKG. Patient symptoms are most likely related to his recent surgery. By the evaluation outlined above emergent etiologies such as cardiac ischemia, aortic dissection, pulmonary embolism, pneumonia, pneumothorax, pericarditis, myocarditis, gastrointestinal, as well as others were deemed relatively unlikely. The pt informed about the findings as listed above. All questions were answered and pleased with the treatment. The chart was completed utilizing [employer] voice recognition software. Grammatical errors, random word insertions, pronoun errors, and incomplete sentences are an occassional consequence of this system due to software limitations, ambient noise, and hardware issues. Any formal questions or concerns about the content, text, or information contained within the body of this dictation should be directly addressed to the physician assistant chief engineer for clarification. Impression & Plan Post-operative pain, Chest pain, Bronchitis, Abdominal pain Discharge Plan Visit Data Chief Complaint: Chest Pain Stated Complaint: CHEST PAIN ED Provider: Babak Mcclelland ED Midlevel Provider: Lesa Crystal Discharge Problem: Post-operative pain, Chest pain, Bronchitis, Abdominal pain Patient Disposition: Being Evaluated by Hospitalist Condition: Good Forms Stand Alone Forms: My [facility] [employer] Prescriptions Prescriptions: No Action simethicone 250 mg capsule 125 mg PO BID PRN (Reason: gas relief) cholecalciferol (vitamin D3) 25 mcg (1,000 unit) tablet 25 mcg PO QAM Praluent Pen 150 mg/mL pen injector 150 mg SQ Q14D aspirin [Adult Aspirin Regimen] 81 mg tablet,delayed release (DR/EC) 81 mg PO QAM atenolol 25 mg tablet 25 mg PO HS nitroglycerin [Nitrostat] 0.4 mg tablet, sublingual 0.4 mg SL Q5M PRN (Reason: Chest Pain) lisinopril 10 mg Tablet 10 mg PO QAM famotidine [Pepcid] 20 mg Tablet 20 mg PO BID oxycodone-acetaminophen [Percocet] 5-325 mg tablet 1 tab PO Q6H PRN (Reason: pain) Qty: 10 0RF Referrals Referrals: [facility] [Primary Care Provider] -
[2022-06-14 03:11] LABS: Basophils # (auto) 0.02 K/uL (0-0.2); Basophils % (auto) 0.2 %; Eosinophils % (auto) 4.7 %; Hematocrit (blood only) 42.2 % (40.1-51.0); Hemoglobin 14.3 g/dl (14.0-18.0); Immature Granulocytes # (auto) 0.03 K/uL (0.00-0.02); Immature Granulocytes % (auto) 0.4 %; Lymphocytes # (auto) 1.07 K/uL (1.2-3.4); Lymphocytes % (auto) 12.5 %; Mean Corpuscular Hemoglobin 31.9 pg (25.0-34.0); Mean Corpuscular Hgb Conc 33.9 g/dL (32.0-36.0); Mean Corpuscular Volume 94.2 fL (80.0-100.0); Mean Platelet Volume 10.3 fL (9.4-12.4); Monocytes # (auto) 0.75 K/uL (0.24-0.82); Monocytes % (auto) 8.8 %; Neutrophils % (auto) 73.4 %; Platelet Count 146 K/uL (130-400); RDW Coefficient of Variation 12.9 % (11.5-14.5); RDW Standard Deviation 44.2 fL (36.4-46.3); Red Blood Count 4.48 M/uL (4.63-6.08); White Blood Count 8.57 K/ul (4.8-10.8)
[2022-06-14 03:29] LABS: Albumin Globulin Ratio 1.4 (0.9-2); BUN Creatinine Ratio 17.1 (10-20); Calcium 8.9 mg/dl (8.5-10.1); Est GFR (African American) 74.4 ml/min; Est GFR (Non-African American) 64.2 ml/min; Globulin 2.9 gm/dl (2.5-4.0); Potassium 4.1 mmol/L (3.5-5.1); Total Protein 6.9 gm/dl (6.0-8.3)
[2022-06-14 03:35] LABS: Troponin I High Sensitivity 7.4 pg/ml (0-20)
[2022-06-14] MEDS ORDERED: OPTIRAY 320 500ml IV ONE (03:58)
[2022-06-14] MEDS ORDERED: PIPERACILLIN/TAZOBACTAM 4.5 GM/120 ML BAG IV ONE (04:27)
[2022-06-14] MEDS ORDERED: MoRPHine SULFATE 4 MG/ML 1 ML CARP\\VIAL IV STA (04:43)
--- NOTE | 2022-06-14 05:12 | History & Physical Report ---
Date of Service June 14, 2022 Assessment & Plan (1) Abdominal pain: Plan: 77yo male with a history of chronic calculous cholecystitis (s/p laparoscopic cholecystectomy performed three days ago, on 06/21/22), HTN, HLD, GERD, history of OK (s/p CABGx3, 2016), AAA (s/p surgical repair in 2020 at [facility]) presents with a three-day history of progressively worsening RUQ pain and SOB. Abdominal pain BP elevated but vitals otherwise stable No leukocytosis, no anemia, no other notable lab abnormalities, lipase not elevated, abdomen nonacute on exam Imaging generally unrevealing (findings noted in HPI) Suspect symptoms are attributable to postoperative pain NPO pending potential surgical intervention though I suspect surgical intervention won't be necessary Received one dose of zosyn in ED; will defer decision re: further antibiotic therapy to day team NSS @ 100mL/hr (x1 bag ordered) General surgery is following Pain control: APAP 1g q8h PO scheduled, toradol prn moderate pain, morphine prn severe pain Trend CBC, BMP Shortness of breath Patient is without fever, leukocytosis, CTABL on my exam - low suspicion for pneumonia SpO2 adequate on room air CXR suggestive of bibasilar atelectasis, no focal consolidation appreciated - suggestive of bronchitis Duonebs q4h, incentive spirometer q1hwa HTN: resume home regimen when no longer NPO HLD/CAD: resume home regimen when no longer NPO GERD: resume home regimen when no longer NPO FEN: NPO for now, NSS @ 100mL/hr (x1 bag ordered) Code status: DNR/DNI DVT ppx: SCDs Dispo: med/surg (2) High cholesterol: (3) Post-operative pain: History of Present Illness Primary Care Provider: [facility] 77yo male with a history of chronic calculous cholecystitis (s/p laparoscopic cholecystectomy performed three days ago, on 06/21/22), HTN, HLD, GERD, history of [place] (s/p CABGx3, 2016), AAA (s/p surgical repair in 2020 at [facility]) presents with a three-day history of progressively worsening RUQ pain and SOB.Patient reports he felt well and was relatively pain-free the first day after surgery, but the following day he developed RUQ pain which has continued to worsen. Also endorses mild intermittent SOB. Patient denies fever, chills, headache, vision changes, CP, palpitations, edema, nausea, vomiting, dysuria, hematochezia, melena, back pain, lightheadedness, dizziness, numbness, tingling, weakness, or other symptoms. Denies recent travel. Upon arrival, vitals were notable for elevated BP (160-190s/70-90s) and br adycardia (47-57); no tachypnea, patient afebrile, spO2 adequate on room air. Initial labs were unremarkable; no leukocytosis, no anemia, platelets wnl, no electrolyte abnormalities, creatinine not elevated, LFTs wnl, Tbili not elevated, covid PCR negative, lipase not elevated, hsTroponin wnl. In the ED, patient received morphine 4mg IV (x1) and a dose of zosyn. EKG: NSR, no overt ischemic change Imaging: CT abdomen/pelvis: s/p laparoscopic cholecystectomy; trace fluid noted in the gallbladder fossa which is within the range of normal; infrarenal AAA incidentally noted measuring 3.4 x 2.6 cm; the appendix is normal; colonic diverticulosis noted without inflammation; ventral abdominal wall hernia are present the most superior of which contains the anterior wall of a segment of the transverse colon compatible with a Ventura hernia; residual pneumoperitoneum noted which is nonspecific s/p recent laparoscopic cholecystectomy CTA chest: ascending thoracic aortic aneurysm measures 4.1 x 4.2 cm without dissection; negative for PE; dense basilar opacities more prominent on the right than on the left likely reflect dense atelectasis; bronchial wall thickening compatible with nonspecific bronchial inflammation or reactive airways disease Surrogate decision-maker in case of an emergency: juan Kiran (cell: [phone]) Allergies Allergy/AdvReac Type Severity Reaction Status Date / Time adhesive tape Allergy Mild Unknown Verified 06/11/22 11:13 fluvastatin Allergy Mild Unknown Verified 06/11/22 11:13 lovastatin [From Mevacor] Allergy Mild Unknown Verified 06/11/22 11:13 pravastatin Allergy Mild Unknown Verified 06/11/22 11:13 rosuvastatin [From Crestor] Allergy Mild Unknown Verified 06/11/22 11:13 simvastatin [From Zocor] Allergy Mild Unknown Verified 06/11/22 11:13 prednisone Allergy Unknown Unknown Verified 06/11/22 12:58 azithromycin [From Zithromax] AdvReac Intermediate Vomiting Verified 06/11/22 11:13 niacin AdvReac Intermediate HEAT Verified 06/11/22 11:13 FLASHES ezetimibe [From Zetia] AdvReac Mild Muscle Pain Verified 06/11/22 11:13 Home Medications Medication Instructions Recorded Confirmed Type alirocumab 150 mg/mL subcutaneous 150 mg subcut Q14D 04/27/19 06/11/22 History pen injector (Praluent Pen) aspirin 81 mg tablet,delayed 81 mg PO QAM 04/27/19 06/14/22 History release (Adult Aspirin Regimen) atenolol 25 mg tablet 25 mg PO HS 04/27/19 06/14/22 History nitroglycerin 0.4 mg sublingual 0.4 mg sublingual Q5M PRN Chest 04/27/19 06/14/22 History tablet (Nitrostat) Pain cholecalciferol (vitamin D3) 25 25 mcg PO QAM 01/21/20 06/14/22 History mcg (1,000 unit) tablet simethicone 250 mg capsule 125 mg PO BID PRN gas relief 01/21/20 06/14/22 Hist ory famotidine 20 mg tablet (Pepcid) 20 mg PO BID 06/04/22 06/14/22 History lisinopril 10 mg tablet 10 mg PO QAM 06/04/22 06/14/22 History oxycodone-acetaminophen 5 mg-325 1 tab PO Q6H PRN pain #10 tabs 06/11/22 06/14/22 Rx mg tablet (Percocet) Past Med/Surg History Medical History Aortic aneurysm repaired in 2020. Benign essential hypertension Coronary artery disease Degenerative disc disease Diverticulosis of colon GERD (gastroesophageal reflux disease) Hx of gastric ulcer Hyperlipidemia Myocardial Infarction reason for bypass in 2017 -- "maybe the starts of a heart attack, I had the symptoms" Osteoarthritis Surgical History H/O colonoscopy (~2018) H/O oral surgery x5 molars removed History of cardiac cath x3 --> unsure if there were stents. History of coronary artery bypass graft x 3 (~2016) [facility] in [place]. History of esophagogastroduodenoscopy (EGD) History of knee replacement (~2009) bilateral History of surgical procedure on eye proper using laser S/P AAA repair (2020) [facility] in [place]. follows with [facility] [place] in [place]. 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 Beliefs That Will Affect Care: None marital status: / Current Living Situation: Other Current Living Situation Comment: Irina-friend current occupational status: retired How many Children do You have: 2 Other Information That Helps Us Care for You: No Feels Safe at Home: Yes during the past year weight has: remained stable Assistive Devices: Glasses and Hearing Aid - Bilateral Physical Exam Physical Exam: Constitutional: well-appearing, no acute distress HEENT: NCAT, no conjunctival injection CV: regular rhythm, no murmur appreciated, extremities well-perfused, no LE edema Resp: CTABL, no wheezes/rales/rhonchi appreciated, no increased work of breathing GI: soft, nondistended, mild generalized tenderness in all quadrants, no guarding nor rebound MSK: no gross deformities appreciated Skin: abdominal laparoscopic wounds without surrounding erythema, edema, exudate, or warmth Neuro: alert, oriented, no focal neurologic deficit appreciated Results & Data Results & Data ([facility]) Vital Signs (Past 12 Hours) Vital Signs Temp Pulse Resp BP Pulse Ox O2 Del Method 06/14/22 02:38 36.9 C 72 18 190/86 H 92 Room Air Supervising Physician Co-Signing Physician Notes Attending addendum: I have physically seen this patient, have supervised the medical residents activities, and agree with the H&P unless as otherwise noted. Assessment and Plan: Abdominal pain/chest pain right-sided status post laparoscopic cholecystectomy on 06/21/2022- Appears spasmodic as talking with patient He has no other specific complaints Placed on NSS at 100 mils per hour Pain control with APAP for mild pain, Toradol for moderate pain and morphine for severe pain Do not see any indication for continue Zosyn at this time Follow serial CBC with differential and chemistry profile May be secondary to atelectasis, would therefore place on DuoNebs 4 times daily and monitor response General surgery has seen patient will be consulted Remaining orders and notations as noted Resident Activity Tracking Resident Involvement: Resident Care Provided and Cad Manager Coverage Note Care Provided: Adult Hospital Medicine
--- NOTE | 2022-06-14 05:19 | Surgery Consultation ---
Date of Consultation June 14, 2022 Assessment & Plan (1) Abdominal pain: I discussed the case with the treating clinician in the emergency department. It appears as though the patient may have bronchitis or developing pneumonia. They are planning on having him admitted to the hospital service. Antibiotics in the form of Zosyn has been initiated. Antibiotic should be continued with plan to transition to oral antibiotics at the time of discharge Encourage use of incentive spirometry Mobilize as able Concerning the patient's recent cholecystectomy: The patient at the present time does not have an acute abdomen He is noted to be hemodynamically stable without hypotension or tachycardia. He is also afebrile. There are no concerning findings on patient's laboratory such as leukocytosis or elevated LFTs. His hemoglobin and hematocrit are also normal. At the present time I do suspect the patient's pain may be on the basis of recent surgery and also the findings as noted above on chest CT Would recommend providing analgesics and gentle IV fluid for hydration We will notify Dr. Murdock of patient's admission additional recommendations to follow-up on his evaluation of the patient Supervising Physician Co-Signing Physician Notes Patient discussed with TOÑITO Reza, labs and imaging reviewed, agree with above. Status post laparoscopic cholecystectomy, admitted for bronchitis. CT personally reviewed and interpreted there appears to be no complication from his cholecystectomy. Labs normal. Dr. Murdock notified by Anshul Pennington, no surgical intervention at this time. History of Present Illness Reason for Consultation: Pain, status post laparoscopic cholecystectomy History of Present Illness This is a 77-year-old male who underwent a laparoscopic cholecystectomy by Dr. Maximiliano Murdock of [facility] surgery on 06/11/2022. Patient notes that he was discharged home the same day as his surgery and was initially doing well. Since arrival home the patient says that he has not had any shortness of breath. He notes that his bowels have moved since his surgery and he is tolerating solid food without difficulty. In addition he is passing a considerable amount of flatus. He denies any fevers, shakes, or chills. Patient notes that just after 24 hours after being home he began to experience Inc. some worsening pain. The patient notes that the pain is primary located in the right upper quadrant of his abdomen and to some degree the lower aspect of his right chest wall. He notes that the pain is worse when he takes deep inspirations. Does not note any palliative factors. He notes that the pain does not radiate. Patient has had labs and imaging which I independent reviewed. A chest x-ray showed bibasilar atelectasis with the right worse than the left. There is a potential small right pleural effusion. CT scan of the abdomen pelvis showed the patient was status postcholecystectomy. There is some trace fluid noted in the gallbladder fossa and there is also some residual pneumoperitoneum. Both of these findings were felt to be nonspecific, particular since patient has had a recent laparoscopic cholecystectomy. Patient did have a ventral abdominal wall hernia containing a segment of transverse colon which was felt to represent a Ventura hernia. A CT scan of the chest did not show any evidence of aortic dissection or pulmonary embolism. Patient was noted to have some nonspecific bronchial inflammation which is felt to be more prominent on the right than on the left. Labs include a CBC her white blood cell count, hemoglobin, hematocrit, and platelet count were all normal. Chemistry profile showed sodium was 134. Potassium, BUN, and creatinine were normal. The patient's bilirubin, transaminases, alkaline phosphatase, and lipase were all normal and not elevated. A COVID test is pending. Since arrival to the emergency department the patient has received antibiotics in the form of Zosyn. He has received 4 mg of intravenous morphine. The patient was noted to be hemodynamically stable without hypotension. (His blood pressure was actually elevated) there were no recorded episodes of tachycardia. The patient's pulse ox was 92% on room air (there were no recorded episodes of hypoxia. The patient was noted to be afebrile and there were no recorded febrile episodes since arrival to the emergency department. At the time of my interview he was resting comfortably in bed and he was in no distress. Allergies Allergy/AdvReac Type Severity Reaction Status Date / Time adhesive tape Allergy Mild Unknown Verified 06/11/22 11:13 fluvastatin Allergy Mild Unknown Verified 06/11/22 11:13 lovastatin [From Mevacor] Allergy Mild Unknown Verified 06/11/22 11:13 pravastatin Allergy Mild Unknown Verified 06/11/22 11:13 rosuvastatin [From Crestor] Allergy Mild Unknown Verified 06/11/22 11:13 simvastatin [From Zocor] Allergy Mild Unknown Verified 06/11/22 11:13 prednisone Allergy Unknown Unknown Verified 06/11/22 12:58 azithromycin [From Zithromax] AdvReac Intermediate Vomiting Verified 06/11/22 11:13 niacin AdvReac Intermediate HEAT Verified 06/11/22 11:13 FLASHES ezetimibe [From Zetia] AdvReac Mild Muscle Pain Verified 06/11/22 11:13 Home Medications Medication Instructions Recorded Confirmed Type alirocumab 150 mg/mL subcutaneous 150 mg subcut Q14D 04/27/19 06/11/22 History pen injector (Praluent Pen) aspirin 81 mg tablet,delayed 81 mg PO QAM 04/27/19 06/11/22 History release (Adult Aspirin Regimen) atenolol 25 mg tablet 25 mg PO HS 04/27/19 06/11/22 History nitroglycerin 0.4 mg sublingual 0.4 mg sublingual Q5M PRN Chest 04/27/19 06/11/22 History tablet (Nitrostat) Pain cholecalciferol (vitamin D3) 25 25 mcg PO QAM 01/21/20 06/11/22 History mcg (1,000 unit) tablet simethicone 250 mg capsule 125 mg PO BID PRN gas relief 01/21/20 06/11/22 History famotidine 20 mg tablet (Pepcid) 20 mg PO BID 06/04/22 06/11/22 History lisinopril 10 mg tablet 10 mg PO QAM 06/04/22 06/11/22 History oxycodone-acetaminophen 5 mg-325 1 tab PO Q6H PRN pain #10 tabs 06/11/22 Rx mg tablet (Percocet) Patient History Medical History Aortic aneurysm repaired in 2020. Benign essential hypertension Coronary artery disease Degenerative disc disease Diverticulosis of colon GERD (gastroesophageal reflux disease) Hx of gastric ulcer Hyperlipidemia Myocardial Infarction reason for bypass in 2017 -- "maybe the starts of a heart attack, I had the symptoms" Osteoarthritis Surgical History H/O colonoscopy (~2018) H/O oral surgery x5 molars removed History of cardiac cath x3 --> unsure if there were stents. History of coronary artery bypass graft x 3 (~2017) [facility] in [place]. History of esophagogastroduodenoscopy (EGD) History of knee replacement (~2009) bilateral History of surgical procedure on eye proper using laser S/P AAA repair (2020) [facility] in [place]. follows with [facility] [place] in [place]. Status post surgery interventional radiology at [facility] April 05, 2022 had a drain placed for his infected gallbladder Family History Other No family history of adverse response to anesthesia Social History Smoking Status: Former smoker Tobacco Type: Cigarettes Second Hand Exposure: No; Do You Dip or Chew Tobacco: No; Tobacco Cessation Education Requested by Patient: No Hx Alcohol Use: Yes Alcohol type: beer Alcohol Intake Frequency: 2-4 x/Month Hx Substance Use: No Preferred Language: Albanian Communication Ability: Effective Bowling Alley Manager Required: No Beliefs That Will Affect Care: None marital status: / Current Living Situation: Other Current Living Situation Comment: Irina-friend current occupational status: retired How many Children do You have: 2 Other Information That Helps Us Care for You: No Feels Safe at Home: Yes during the past year weight has: remained stable Assistive Devices: Glasses and Hearing Aid - Bilateral Review of Systems Constitutional: no fever and no chills Eyes: no eye pain Ear, Nose, Mouth, Throat: no ear pain Respiratory: + pain on inspiration; no cough and no dyspnea Cardiovascular: no chest pain Gastrointestinal: + abdominal pain; no nausea, no vomiting and no constipation Genitourinary: no dysuria Musculoskeletal: no back pain Integumentary: no rash Neurologic: no localized weakness Physical Exam Constitutional: WD/WN, vitals as above Eyes: no conjunctival abnormality and sclerae not anicteric ENMT: Ears: no hearing impairment and no external ear abnormality Mouth: no oropharynx abnormality Neck: trachea midline Respiratory: Breath sounds are present bilaterally. Breath sounds are decreased at the bases with the right being more decreased than the left. There are no rales, rhonchi, or wheezing. The patient was not using accessory muscles to aid in respiration. Cardiovascular: Rate/Rhythm: regular rate Vessels: posterior tibial pulses present and radial pulses present Gastrointestinal (Abdomen): Patient's abdomen is soft. It is nonrigid and minimally distended. The patient's surgical incisions from recent laparoscopy are clean, dry, intact. Patient did have a palpable ventral hernia that was nonpainful to palpation. Bowel sounds are present. There is pain with palpation in the right upper quadrant near his surgical incisions. No rebound tenderness or guarding was noted. Musculoskeletal: No calf tenderness. Feet are warm and nonmottled Skin: no rashes Neurologic: moves all extremities Psychiatric: A+Ox3, euthymic affect Results & Data ([facility]) Vital Signs (Past 12 Hours) Vital Signs Temp Pulse Resp BP Pulse Ox O2 Del Method 06/14/22 02:38 36.9 C 72 18 190/86 H 92 Room Air PG Care Time/CCT Total # of Minutes Spent Total Time Spent with Patient: Total time spent is greater than 50% in coordination of care (as documented) at patient's floor/unit and/or counseling patient: Coding Level of Care Code None Diagnoses Abdominal pain R10.9
[2022-06-14] MEDS ORDERED: MoRPHine SULFATE 2 MG/ML CARP IV PRN (06:46)
[2022-06-14] MEDS ORDERED: ONDANSETRON INJ 2 MG/ML 2 ML VIAL IV PRN (06:46)
[2022-06-14] MEDS ORDERED: KETOROLAC TROMETHAMINE 15 MG/ML VIAL IV PRN (06:46)
[2022-06-14] MEDS ORDERED: SODIUM CHLORIDE 0.9% 1000ML 1,000 ML IV SCH (06:46)
[2022-06-14] MEDS ORDERED: SIMETHICONE 80 MG CHEW PO PRN (06:56)
[2022-06-14] MEDS: ALBUT/IPRATROP 3MG/0.5MG NEB 3 ML VIAL NEB SCH ×3 (07:43→15:16)
--- NOTE | 2022-06-14 07:53 | XRay Report ---
SINGLE VIEW CHEST CLINICAL HISTORY: Atypical chest pain. FINDINGS: An AP, portable, upright chest radiograph is compared to study dated 03/30/2022. The patient is status post midline sternotomy. The heart is enlarged noting atherosclerotic calcification of the thoracic aorta. The pulmonary vasculature is noncongested. Emphysema and chronic interstitial thicke lance is similar to previous. There is a small right pleural effusion and bibasilar airspace opacities . No pneumothorax is seen. The skeletal structures are osteopenic. The bony thorax is grossly intact. IMPRESSION: 1. Cardiomegaly and emphysema without radiographic evidence of congestive failure. 2. Small right pleural effusion and bibasilar airspace opacities. This could represent scarring/atele ctasis versus an infectious/inflammatory pneumonitis. Clinical correlation will be required. ACT 112: Negative or not required by law. Electronically signed by: Gareth Dale M.D. 06/14/2022 7:52 AM
--- NOTE | 2022-06-14 08:09 | CT Scan Report ---
CT SCAN OF THE ABDOMEN AND PELVIS WITH IV CONTRAST CLINICAL HISTORY: Generalized abdominal pain. Weakness and dyspnea. Recent cholecystectomy. COMPARISON STUDY: Abdominal CT dated 03/09/2019. Abdominal ultrasound dated 03/30/2022 TECHNIQUE: Following the IV administration of 112 cc of Optiray 320, CT scan of the abdomen and pelv is is performed from the lung bases to the proximal femora. Images are reviewed in the axial, sagitta l, and coronal planes. IV contrast was administered without complication. A dose lowering technique w as utilized adhering to the principles of ALARA. CT DOSE: 1152.78 mGy.cm FINDINGS: Lung bases: The patient is status post midline sternotomy. The heart is enlarged and without pericard ial effusion. The coronary arteries are densely calcified. There is a small hiatal hernia. There is a small right pleural effusion. Dependent airspace consolidation is seen bilaterally, right greater th an left. Liver: The contrast-enhanced liver is normal in size, contour, and attenuation. There is no intrahepa tic biliary ductal dilatation. The hepatic veins and portal veins are patent. Gallbladder: Surgically absent and clips in the gallbladder fossa. There is mild infiltration/strandi ng in the gallbladder fossa. No fluid collection is seen. Spleen: Normal in size and attenuation. Pancreas: Unremarkable. Adrenal glands: Unremarkable. Kidneys: The contrast enhanced kidneys are normal in size and without hydronephrosis. The kidneys enh ance symmetrically. Abdominal vasculature: There is advanced atherosclerotic calcification of the abdominal aorta. An inf rarenal abdominal aortic aneurysm measures up to 3.7 cm. There is ectasia of the common iliac arterie s which measure up to 1.9 cm. Bowel: There is moderate to advanced colonic diverticulosis without CT evidence of acute diverticulit is. No bowel obstruction is seen. Chau-hc-zolbnnlg fecal retention is seen throughout the colon. The appendix is well-visualized and normal. The anterior wall of the transverse colon is contained withi n a ventral hernia as seen on image #203. Peritoneum: There are tiny foci of intraperitoneal free air. No abdominal ascites is seen. There is a fat-containing umbilical hernia which contains trace fluid. There are fat-containing suprarenal foca l hernia is seen on images #174 and #223 which contain small foci of intraperitoneal free air. There are also tiny foci of gas within the ventral abdominal wall. Lymphadenopathy: None. Pelvic viscera: The prostate gland is enlarged and heterogeneous. The bladder wall is thickened/trabe culated indicating chronic outlet obstruction. There is a fat-containing left inguinal hernia. Skeletal structures: The skeletal structures are osteopenic. There is moderate lumbosacral spondylosi s. No lytic or blastic lesions are seen. IMPRESSION: 1. The gallbladder surgically absent. Mild infiltration within the gallbladder fossa likely represent s expected postoperative change. No fluid collection is seen. 2. There are tiny foci of intraperitoneal free air within fat-containing ventral hernias. This is lik chanda related to recent surgery. Clinical correlation will be required. 3. Cardiomegaly and small right pleural effusion. 4. Dependent consolidation is seen at the lung bases, right greater than left. This likely represents scarring/atelectasis. Correlate clinically for evidence of a superimposed pneumonitis. 5. There is a 3.7 cm infrarenal abdominal aortic aneurysm. 6. Colonic diverticulosis without CT evidence of acute diverticulitis. 7. Additional findings as above. ACT 112: Negative or not required by law. Electronically signed by: Gareth Dale M.D. 06/14/2022 8:07 AM
[2022-06-14] MEDS: ACETAMINOPHEN 500 MG TAB PO SCH ×2 (08:19→14:45)
--- NOTE | 2022-06-14 08:39 | CT Scan Report ---
CT angio chest PE protocol CLINICAL HISTORY: PE TECHNIQUE: Multidetector row helical CT of the chest was performed with angiographic protocol. Darnell l and sagittal reformations were obtained. Coronal and sagittal MIPS were obtained from the axial shannon a set and were submitted for review. Automated dose lowering techniques and/or adjustment according to patient size were utilized for this exam. Comparison: Comparison is made to chest radiograph 06/14/2022 FINDINGS: Lungs and pleura: Trace right pleural effusion is seen and there is atelectasis in the right greater than left lung base. Intraparenchymal lymph nodes are seen in the fissures. Heart and pericardium: Cardiomegaly is seen with biatrial enlargement. Vessels: No evidence of pulmonary embolism. The pulmonary trunk measures 34 mm in diameter. There is mild aneurysmal enlargement of the ascending aorta measuring 42 mm in diameter. Mediastinum and katherine: Unremarkable. Chest wall and lower neck: Unremarkable. Abdomen: Patient is status post cholecystectomy. Bones: Degenerative changes in the thoracic spine. IMPRESSION: 1. No evidence of pulmonary embolism. 2. Mild pulmonary hypertension. Small ascending aortic aneurysm. 3. Trace right pleural effusion with right greater than left atelectasis. ACT 112: Negative or not required by law. Electronically signed by: Shashank Anderson M.D. 06/14/2022 8:37 AM
[2022-06-14] MEDS ORDERED: LIDOCAINE 5% 1 PATCH TD SCH (09:00)
[2022-06-14] MEDS ORDERED: FAMOTIDINE 20 MG TAB PO SCH (09:00)
[2022-06-14] MEDS ORDERED: lisinopril 10 MG TAB PO SCH (09:00)
[2022-06-14] MEDS ORDERED: ASPIRIN 81 MG ECTAB PO SCH (09:00)
[2022-06-14] MEDS ORDERED: POLYETHYLENE (MIRALAX) 17 GM PACK PO SCH ×2 (13:45→14:00)
--- NOTE | 2022-06-14 14:39 | Surgery Progress Note ---
Date of Service June 14, 2022 Assessment & Plan (1) Post-operative pain: (2) Bronchitis: (3) Chest pain: Plan 77-year-old gentleman postop day 3 status post uneventful laparoscopic cholecystectomy. I do not believe he has any issue with the surgery. I discussed with him need for better pain control with Percocet and ibuprofen. We may advance his diet as tolerated. He may be discharged to home from the surgical standpoint. Admission and Anticipated Discharge Date Admission Date: June 14, 2022 Subjective 77-year-old postop day 3 status post uneventful laparoscopic cholecystectomy. He returned to the emergency department last night due to significant pain. Labs were normal. CT scan of the abdomen pelvis was normal with normal postoper ative changes in the right upper quadrant. Question of consolidation versus developing pneumonia in the right lower lobe. Today he is feeling improved. He still has right upper quadrant pain. He has pain when he takes a deep breath. He denies fevers and chills. Physical Exam Physical Exam: Abdomen soft, minimal TTP in RUQ; no rebound / guarding; incisions healing well without erythema ordischarge Results & Data ([facility]) Vital Signs (Past 12 Hours) Vital Signs Temp Pulse Pulse Resp BP BP BP 06/14/22 11:00 138/79 06/14/22 11:20 73 18 06/14/22 07:50 06/14/22 09:31 169/89 H 06/14/22 06:35 201/101 H 06/14/22 07:45 64 16 06/14/22 07:15 36.9 C 06/14/22 05:00 71 18 06/14/22 05:00 172/96 H 06/14/22 04:30 66 20 06/14/22 04:30 167/96 H 06/14/22 04:00 69 18 06/14/22 04:00 163/92 H 06/14/22 03:30 68 23 06/14/22 03:30 152/84 H 06/14/22 03:00 69 19 06/14/22 03:00 158/86 H 06/14/22 02:53 67 22 06/14/22 02:38 36.9 C 72 18 190/86 H Pulse Ox O2 Del Method 06/14/22 11:00 06/14/22 11:20 94 Room Air 06/14/22 07:50 Room Air 06/14/22 09:31 06/14/22 06:35 06/14/22 07:45 95 Room Air 06/14/22 07:15 91 Room Air 06/14/22 05:00 06/14/22 05:00 06/14/22 04:30 92 06/14/22 04:30 06/14/22 04:00 06/14/22 04:00 06/14/22 03:30 06/14/22 03:30 06/14/22 03:00 92 06/14/22 03:00 06/14/22 02:53 93 06/14/22 02:38 92 Room Air Laboratory Results 06/14/22 06/14/22 06/14/22 Range/Units 04:58 04:23 02:58 WBC (4.8-10.8) K/ul RBC (4.63-6.08) M/uL Hgb (14.0-18.0) g/dl Hct (40.1-51.0) % MCV (80.0-100.0) fL MCH (25.0-34.0) pg MCHC (32.0-36.0) g/dL RDW Std Deviation (36.4-46.3) fL RDW Coeff of Grazyna (11.5-14.5) % Plt Count (130-400) K/uL MPV (9.4-12.4) fL Immature Gran % (Auto) % Neut % (Auto) % Lymph % (Auto) % Wilkinson % (Auto) % Eos % (Auto) % Baso % (Auto) % Neut # (Auto) (1.4-6.5) K/uL Lymph # (Auto) (1.2-3.4) K/uL Wilkinson # (Auto) (0.24-0.82) K/uL Eos # (Auto) (0-0.50) K/uL Baso # (Auto) (0-0.2) K/uL Immature Gran # (Auto) (0.00-0.02) K/uL Sodium 134 L (136-145) mmol/L Potassium 4.1 (3.5-5.1) mmol/L Chloride 102 (98-107) mmol/L Carbon Dioxide 26 (21-32) mmol/L Anion Gap 6 (3-11) BUN 19 (6-23) mg/dl Creatinine 1.11 (0.6-1.4) mg/dl Est Cr Clr Drug Dosing 70.0 ml/min Est GFR ( Amer) 74.4 ml/min Est GFR (Non-Af Amer) 64.2 ml/min BUN/Creatinine Ratio 17.1 (10-20) Glucose 120 H (70-99(Fasting)) mg/dl Calcium 8.9 (8.5-10.1) mg/dl Total Bilirubin 1.0 (0.2-1.0) mg/dl AST 19 (13-39) U/L ALT 21 (7-52) U/L Alkaline Phosphatase 71 (34-104) U/L Troponin I High Sens 6.8 7.4 (0-20) pg/ml Total Protein 6.9 (6.0-8.3) gm/dl Albumin 4.0 (3.4-5.0) gm/dl Globulin 2.9 (2.5-4.0) gm/dl Albumin/Globulin Ratio 1.4 (0.9-2) Lipase 43 (11-82) U/L SARS-CoV-2, RNA, NAAT NEGATIVE (NEGATIVE) 06/14/22 Range/Units 02:58 WBC 8.57 (4.8-10.8) K/ul RBC 4.48 L (4.63-6.08) M/uL Hgb 14.3 (14.0-18.0) g/dl Hct 42.2 (40.1-51.0) % MCV 94.2 (80.0-100.0) fL MCH 31.9 (25.0-34.0) pg MCHC 33.9 (32.0-36.0) g/dL RDW Std Deviation 44.2 (36.4-46.3) fL RDW Coeff of Grazyna 12.9 (11.5-14.5) % Plt Count 146 (130-400) K/uL MPV 10.3 (9.4-12.4) fL Immature Gran % (Auto) 0.4 % Neut % (Auto) 73.4 % Lymph % (Auto) 12.5 % Wilkinson % (Auto) 8.8 % Eos % (Auto) 4.7 % Baso % (Auto) 0.2 % Neut # (Auto) 6.30 (1.4-6.5) K/uL Lymph # (Auto) 1.07 L (1.2-3.4) K/uL Wilkinson # (Auto) 0.75 (0.24-0.82) K/uL Eos # (Auto) 0.40 (0-0.50) K/uL Baso # (Auto) 0.02 (0-0.2) K/uL Immature Gran # (Auto) 0.03 H (0.00-0.02) K/uL Sodium (136-145) mmol/L Potassium (3.5-5.1) mmol/L Chloride (98-107) mmol/L Carbon Dioxide (21-32) mmol/L Anion Gap (3-11) BUN (6-23) mg/dl Creatinine (0.6-1.4) mg/dl Est Cr Clr Drug Dosing ml/min Est GFR ( Amer) ml/min Est GFR (Non-Af Amer) ml/min BUN/Creatinine Ratio (10-20) Glucose (70-99(Fasting)) mg/dl Calcium (8.5-10.1) mg/dl Total Bilirubin (0.2-1.0) mg/dl AST (13-39) U/L ALT (7-52) U/L Alkaline Phosphatase (34-104) U/L Troponin I High Sens (0-20) pg/ml Total Protein (6.0-8.3) gm/dl Albumin (3.4-5.0) gm/dl Globulin (2.5-4.0) gm/dl Albumin/Globulin Ratio (0.9-2) Lipase (11-82) U/L SARS-CoV-2, RNA, NAAT (NEGATIVE)
--- NOTE | 2022-06-14 18:17 | Discharge Summary ---
Date of Service June 14, 2022 Admission HPI Per Admitting Provider 77yo male with a history of chronic calculous cholecystitis (s/p laparoscopic cholecystectomy performed three days ago, on 06/21/22), HTN, HLD, GERD, history of PR (s/p CABGx3, 2016), AAA (s/p surgical repair in 2020 at [facility]) presents with a three-day history of progressively worsening RUQ pain and SOB.Patient reports he felt well and was relatively pain-free the first day after surgery, but the following day he developed RUQ pain which has continued to worsen. Also endorses mild intermittent SOB. Patient denies fever, chills, headache, vision changes, CP, palpitations, edema, nausea, vomiting, dysuria, hematochezia, melena, back pain, lightheadedness, dizziness, numbness, tingling, weakness, or other symptoms. Denies recent travel. Upon arrival, vitals were notable for elevated BP (160-190s/70-90s) and bradycardia (47-57); no tachypnea, patient afebrile, spO2 adequate on room air. Initial labs were unremarkable; no leukocytosis, no anemia, platelets wnl, no electrolyte abnormalities, creatinine not elevated, LFTs wnl, Tbili not elevated, covid PCR negative, lipase not elevated, hsTroponin wnl. In the ED, patient received morphine 4mg IV (x1) and a dose of zosyn. EKG: NSR, no overt ischemic change Imaging: CT abdomen/pelvis: s/p laparoscopic cholecystectomy; trace fluid noted in the gallbladder fossa which is within the range of normal; infrarenal AAA incidentally noted measuring 3.4 x 2.6 cm; the appendix is normal; colonic diverticulosis noted without inflammation; ventral abdominal wall hernia are present the most superior of which contains the anterior wall of a segment of the transverse colon compatible with a Ventura hernia; residual pneumoperitoneum noted which is nonspecific s/p recent laparoscopic cholecystectomy CTA chest: ascending thoracic aortic aneurysm measures 4.1 x 4.2 cm without dissection; negative for PE; dense basilar opacities more prominent on the right than on the left likely reflect dense atelectasis; bronchial wall thickening compatible with nonspecific bronchial inflammation or reactive airways disease Surrogate decision-maker in case of an emergency: juan Kiran (cell: [phone]) Principal Diagnosis Constipation associated with post operative pain Discharge Exam Abdomen soft, minimal TTP in RUQ; no rebound / guarding; incisions healing well without erythema ordischarge Constitutional WD/WN, vitals as above Eyes no conjunctival abnormality and sclerae not anicteric ENMT Ears: no hearing impairment and no external ear abnormality Neck trachea midline Cardiovascular Rate/Rhythm: regular rate Vessels: radial pulses present Gastrointestinal (Abdomen) Inspection/Auscultation: + abdominal surgical incision and + hypoactive bowel sounds Skin no rashes Neurologic moves all extremities Psychiatric A+Ox3, euthymic affect Discharge Data Allergies Allergy/AdvReac Type Severity Reaction Status Date / Time adhesive tape Allergy Mild Unknown Verified 06/11/22 11:13 fluvastatin Allergy Mild Unknown Verified 06/11/22 11:13 lovastatin [From Mevacor] Allergy Mild Unknown Verified 06/11/22 11:13 pravastatin Allergy Mild Unknown Verified 06/11/22 11:13 rosuvastatin [From Crestor] Allergy Mild Unknown Verified 06/11/22 11:13 simvastatin [From Zocor] Allergy Mild Unknown Verified 06/11/22 11:13 prednisone Allergy Unknown Unknown Verified 06/11/22 12:58 azithromycin [From Zithromax] AdvReac Intermediate Vomiting Verified 06/11/22 11:13 niacin AdvReac Intermediate HEAT Verified 06/11/22 11:13 FLASHES ezetimibe [From Zetia] AdvReac Mild Muscle Pain Verified 06/11/22 11:13 Consultations 06/14/22 04:46 ED Decision to Admit Stat Ordered Studies 06/14/22 03:00 CT Abd and Pelvis [CT abd pelvis IV con only] Urgent CT angio chest PE protocol Urgent Hospital Course (1) Abdominal pain: 77yo male with a history of chronic calculous cholecystitis (s/p laparoscopic cholecystectomy performed three days ago, on 06/21/22), HTN, HLD, GERD, history of PR (s/p CABGx3, 2016), AAA (s/p surgical repair in 2020 at [facility]) presents with a three-day history of progressively worsening RUQ pain and SOB. Abdominal pain Based on CT imaging, pt has large stool load representing moderate to severe constipation. Large stool burden particularly at the hepatic flexure (near his surgical site). Started pt on 68mg of miralax in house and recommended he take 34 mg daily u ntil BM and if after 3 days, has no BM decrease to 17 mg and add dulcolax. No leukocytosis, no anemia, no other notable lab abnormalities, lipase not elevated, abdomen nonacute on exam Suspect symptoms are attributable to postoperative pain Received one dose of zosyn in ED; no further antibiotics required NSS @ 100mL/hr x1 bag ordered received General surgery is following, no further surgical needs from their standpoint Shortness of breath Patient is without fever, leukocytosis, CTABL on my exam - low suspicion for pneumonia SpO2 adequate on room air CXR suggestive of bibasilar atelectasis, no focal consolidation appreciated - suggestive of bronchitis Recommended incentive spirometry at home at least 5x per day for the next week HTN: resume home regimen HLD/CAD: resume home regimen GERD: resume home regimen FEN: Regular Code status: DNR/DNI Dispo: D/c home (2) High cholesterol: (3) Post-operative pain: Total Time Total Time Spent Total Time Spent (In Minutes): <30 Discharge Plan Discharge Items Patient Disposition: Home - Self-Care Reason For Visit: POSTOPERATIVE ABDOMINAL PAIN Discharge Diagnosis: Right upper quadrant pain Condition on Discharge: Good Activity: Per Instructions section Non-emergency contact: Primary Care Provider and Surgeon Call non-emergency contact if: you have any medication questions Follow-up/Referrals: [facility] [Primary Care Provider] - Diet: Regular Addtl Attending Provider Instructions: You are seen in the hospital for the evaluation of right upper quadrant pain status post cholecystectomy. While you are here you were evaluated in the emergency room where they did CT of the abdomen to look for a cause. Because of your recent surgery, you were admitted to the hospital for evaluation by our hospitalist team and to be seen by our surgery team as well. After review of your imaging and record, we did find that your colon has solid stool in the ascending and transverse sections indicating moderate to severe constipation. The stool was in its largest bulk in the right upper quadrant where you are experiencing the majority of your pain. We feel that this pressure that it is being pushed against your surgical site is likely why you are experiencing so much pain and so frequently. For this reason we started you on a colon cleanse with MiraLAX. You elected to try to pass the bowel movement on your own at home. Please follow the following bowel regimen when you return home today: Take at least 34 mg of miralax daily for at least 3 days. If you do not have a bowel movement, decrease dose to 17 mg and add a stimulant laxative such a dulcolax. Once a bowel movement is had, decrease miralax to 17 mg daily until regular bowel movements are achieved, once they are achieved, you may return to your regimen prior to admission to hospital. Is been a pleasure to be part of your care and we wish you the best in both your health and recovery. Pending Studies at Discharge: No Stand-Alone Forms: My [facility], Smoking Cessation Medications and DC Order Prescriptions: Continued simethicone 250 mg capsule 125 mg PO BID PRN (Reason: gas relief) cholecalciferol (vitamin D3) 25 mcg (1,000 unit) tablet 25 mcg PO QAM Praluent Pen 150 mg/mL pen injector 150 mg SQ Q14D aspirin [Adult Aspirin Regimen] 81 mg tablet,delayed release (DR/EC) 81 mg PO QAM atenolol 25 mg tablet 25 mg PO HS nitroglycerin [Nitrostat] 0.4 mg tablet, sublingual 0.4 mg SL Q5M PRN (Reason: Chest Pain) lisinopril 10 mg Tablet 10 mg PO QAM famotidine [Pepcid] 20 mg Tablet 20 mg PO BID oxycodone-acetaminophen [Percocet] 5-325 mg tablet 1 tab PO Q6H PRN (Reason: pain) Qty: 10 0RF Discharge Orders: Discharge Order (Routine); Ordered 06/14/22 Ordered By: Jhonatan Ennis/Other Patient Handouts: Communicating About Pain, Managing Post-Op Pain at Home Admission Data Admit Date/Time: 06/14/22 05:44 Attending Provider: Aidan Cintron Admit Provider: Deni Farnsworth Primary Care Provider: [facility] Other Providers: Rupesh Nguyen Other Interventions: Discharge Summary Assessment (RN) Last Done: 06/14/22 17:32 Supervising Physician Co-Signing Physician Notes I personally examined the patient and verified all [place] points of history and exam, discussed case, and agree with decision making with Dr Reyes Abdominal pain up and down. Discussed situation in depth, reviewed CT with him. Feels comfortable with going home. Outgoing Inspector input appreciated. Vitals noted, in general he is awake and alert pleasant no distress. HEENT normocephalic atraumatic mucous membranes moist. Breathing unlabored no accessory muscle use good effort. Skin shows no rashes no pallor or icterus. Exam otherwise as above. CT reviewed personally as well as with patient. Abdominal painsignificant fecal loadinterestingly there is a bulk of hard stool right at about the hepatic flexureprobably worsening some of his right upper pain from postop changesdiscussed in depth, and after discussing the diagnosis and the plan, he feels very comfortable going home. Discussed use of MiraLAX. Safe/stable for home, outpatient follow-up, otherwise as above
--- NOTE | 2022-06-14 19:00 | Billing Data ---
Date of Service June 14, 2022 Coding Level of Care Code 01570 OBS Care - Discharge
--- NOTE | 2022-06-14 19:09 | Billing Data ---
Date of Service June 14, 2022 Coding Level of Care Code INT OBSERVATION CARE 71M LVL 3
[2022-06-14] MEDS ORDERED: ATENOLOL 25 MG TABLET PO SCH (21:00)
--- NOTE | 2022-06-14 21:41 | Electrocardiogram Report ---
Test Reason : Blood Pressure : / mmHG Vent. Rate : 070 BPM Atrial Rate : 070 BPM P-R Int : 192 ms QRS Dur : 088 ms QT Int : 398 ms P-R-T Axes : 038 -06 041 degrees QTc Int : 429 ms Normal sinus rhythm Nonspecific ST abnormality Abnormal ECG When compared with ECG of 05-APR-2022 01:30, Vent. rate has increased BY 24 BPM Confirmed by Jovanny Hi ([id number]) on 06/14/2022 9:41:14 PM Referred By: REFERRED SELF Confirmed By:Jovanny Hi
== END 2022-06-14 18:29 | disposition home or self-care (01) ==
LOC: 3W 02:35 → ED 02:35 → SUATTDRO 05:44 → 3W 06:25

== ENCOUNTER 2024-10-11 15:17 | Inpatient (IN) ==
[2024-10-11 16:11] LABS: Basophils # (auto) 0.04 K/uL (0.00-0.20); Basophils % (auto) 0.8 %; Eosinophils # (auto) 0.27 K/uL (0.00-0.50); Eosinophils % (auto) 5.7 %; Hematocrit (blood only) 41.8 % (42.0-52.0); Hemoglobin 13.9 g/dl (14.0-18.0); Immature Granulocytes # (auto) 0.02 K/uL (0.01-0.20); Immature Granulocytes % (auto) 0.4 %; Lymphocytes # (auto) 1.46 K/uL (1.20-3.40); Lymphocytes % (auto) 30.7 %; Mean Corpuscular Hemoglobin 30.8 pg (25.0-34.0); Mean Corpuscular Hgb Conc 33.3 g/dL (32.0-36.0); Mean Corpuscular Volume 92.5 fL (80.0-100.0); Mean Platelet Volume 10.2 fL (9.4-12.4); Monocytes # (auto) 0.54 K/uL (0.11-0.59); Monocytes % (auto) 11.3 %; Neutrophils # (auto) 2.43 K/uL (1.40-6.50); Neutrophils % (auto) 51.1 %; Platelet Count 189 K/uL (130-400); RDW Coefficient of Variation 12.5 % (11.5-14.5); RDW Standard Deviation 42.9 fL (36.4-46.3); Red Blood Count 4.52 M/uL (4.70-6.10); White Blood Count 4.76 K/ul (4.8-10.8)
[2024-10-11 16:28] LABS: Albumin Globulin Ratio 1.7 (0.9-2); Albumin Level 4.3 gm/dl (3.4-5.0); BUN Creatinine Ratio 16.7 (10-20); Bilirubin,Total 0.6 mg/dl (0.2-1.0); Calcium 9.1 mg/dl (8.6-10.3); Creatinine Clr Calc Pharmacy 64.8 ml/min; Globulin 2.5 gm/dl (2.5-4.0); Potassium 3.9 mmol/L (3.5-5.1); Total Protein 6.8 gm/dl (6.0-8.3)
--- NOTE | 2024-10-11 16:33 | Emergency Department Note ---
Impression & Plan Chest pain, Non-ST elevation IN (NSTEMI) ED Provider Note HISTORY OF PRESENT ILLNESS: Patient is a 79-year-old male presenting with chest pain. Patient reports that he has been having intermittent chest pain for the last few months. However, he states that in the last week he has been having significant increase in the chest pain frequency and intensity. He reports that for the last 2 to 3 days he has had continuous chest pain. He denies the pain is a pressure sensation and states that it waxes and wanes in intensity. He reports that up until a week ago he is able to walk a mile a day. He states in the last week anytime he tries to do his mile walk he developed chest pain and gets short of breath. He has a history of a CABG. He is on a baby aspirin daily. He reports he took a nitro at 1150 with some slight improvement in his chest pain. He reports his pain is currently 3 out of 10. He does report some radiation into his left arm and left neck. He denies any lightheadedness or dizziness. He denies any DVT or PE history. He denies any nausea or vomiting with the chest pain. Patient reports that over the last few months him and his doctor thought that his pain was secondary to GERD, simethicone seem to help the symptoms. However, in the last week simethicone does not help. ROS: as above PHYSICAL EXAM: Constitutional: Patient appears in no acute distress. HENT: Head: Normocephalic and atraumatic. Eyes: EOMI, PERRL Mouth/Throat: Mucous membranes moist. Neck: Trachea midline. Neck supple. Cardiovascular: RRR, No murmurs, rubs or gallops. Intact distal pulses. Pulmonary/Chest: No respiratory distress. Breath sounds clear and equal bilaterally. No wheezes or rales. Abdominal: Abdomen soft, no tenderness, rebound or guarding. Musculoskeletal: No edema, tenderness or deformity noted. Skin: Warm and dry. No rash, erythema, pallor or cyanosis Psychiatric: Appropriate mood and affect for situation. Neurological: Alert and keenly responsive. CN II-XII grossly intact, moving all extremities equally and fully. MDM: - Vitals signs showed hypertension - History obtained via patient. History as above. - Chronic conditions affecting care: CAD (s/p CABG); HTN; HLD; AAA (s/p repair) - Differential diagnoses include, but are not limited to: Acute coronary syndrome; pulmonary embolism; dissection; tension pneumothorax; esophageal rupture; pneumonia - Order placed for continuous cardiac monitoring. At this time, monitor showed rate of 65 bpm with normal sinus rhythm, per my interpretation. - External medical records reviewed. Patient last had a nuclear cardiopulmonary stress test in our system on 05/17/2020. - EKG image interpreted by myself showed normal sinus rhythm. Rate 60 bpm. QT 400. No acute ischemic changes. - Laboratory workup interpreted by myself showed slight leukopenia (WBC 4.76); normal PT/INR; stable electrolytes; elevated troponin (95.1); slightly elevated BNP (101); normal lipase - CXR image reviewed by myself negative for pneumonia, per my interpretation. - High risk HEART score, given age, risk factors and elevated troponin. - Discussion was had with assistant operations manager about patient's case and need for admission - Hospitalist, Dr. Feldman, consulted for admission - Patient admitted to [facility] service for further evaluation and management. ASSESSMENT AND PLAN: Diagnosis: Chest pain; NSTEMI Plan: Admit Past Med/Surg History Problem List (Updated 10/11/24 @ 17:17 by Sophie Ibrahim MD) Non-ST elevation IN (NSTEMI) (Acute) Chest pain (Acute) Abdominal pain (Acute) Bronchitis (Acute) Post-operative pain (Acute) Lab test negative for COVID-19 virus (Acute) Cholelithiasis (Acute) Stomach ulcer High cholesterol Arthritis Incisional hernia (Acute) Multiple fractures of ribs of left side (Acute) Small intestinal bacterial overgrowth Bloating (Chronic) Coronary artery disease with hx of myocardial infarct w/o hx of CABG (Chronic) Benign essential hypertension (Chronic) Substernal chest pain (Acute) Medical History CAD (coronary artery disease) Hx of fracture of rib (2019) left Hx of cholelithiasis surgery Hx of bronchitis (2021) Bloating Benign essential hypertension Hx of chest pain Renal artery stenosis monitored by pcp, recently had CT scan at [facility] 08/06/23 Hx of myocardial infarction (2016) cabg Hx of aortic aneurysm (2020) surgery 2020 Fuchs' corneal dystrophy of both eyes Osteoarthritis Degenerative disc disease Hx of gastric ulcer GERD (gastroesophageal reflux disease) Hyperlipidemia Diverticulosis of colon Surgical History Hx of hernia repair incisional hernia from AAA repaired History of bilateral cataract extraction Hx of cholecystectomy H/O oral surgery x5 molars removed Status post surgery (04/05/22) interventional radiology at [facility] April 05, 2022 had a drain placed for his infected gallbladder History of esophagogastroduodenoscopy (EGD) History of surgical procedure on eye proper using laser History of cardiac cath x3 --> states 4 stents total- [facility] in [place]- follows with cardio [facility] __ [facility] in [place](10/2023) 2017- cabg x 3 H/O colonoscopy (~2018) History of knee replacement (~2009) bilateral S/P AAA repair (2020) [facility]. follows with Cardiology [facility] in [place]. History of coronary artery bypass graft x 3 (~2016) [facility]. 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: No Beliefs That Will Affect Care: None marital status: / Current Living Situation: Significant Other Current Living Situation Comment: Irina-friend current occupational status: retired How many Children do You have: 2 Feels Safe at Home: Yes Diet: regular during the past year weight has: remained stable Assistive Devices: Denture - Upper, Glasses and Hearing Aid - Bilateral Allergies Allergies Allergy/AdvReac Type Severity Reaction Status Date / Time adhesive tape Allergy Mild Unknown Verified 08/10/24 07:55 fluvastatin Allergy Mild Unknown Verified 08/10/24 07:55 lovastatin [From Mevacor] Allergy Mild Unknown Verified 08/10/24 07:55 pravastatin Allergy Mild Unknown Verified 08/10/24 07:55 rosuvastatin [From Crestor] Allergy Mild Unknown Verified 08/10/24 07:55 simvastatin [From Zocor] Allergy Mild Unknown Verified 08/10/24 07:55 Splosnj-[id number]-[id number] Reductase Allergy Mild Cramping Verified 08/10/24 07:55 Inhibitor of the Muscles prednisone Allergy Unknown Unknown Verified 08/10/24 07:55 azithromycin [From Zithromax] AdvReac Intermediate Vomiting Verified 08/10/24 07:55 niacin AdvReac Intermediate HEAT Verified 08/10/24 07:55 FLASHES ezetimibe [From Zetia] AdvReac Mild Muscle Pain Verified 08/10/24 07:55 Home Meds Home Medications Medication Instructions Recorded Confirmed alirocumab 150 mg/mL subcutaneous 150 mg subcut Q14D 04/27/19 10/11/24 pen injector (Praluent Pen) aspirin 81 mg tablet,delayed 81 mg PO QAM 04/27/19 10/11/24 release (Adult Aspirin Regimen) nitroglycerin 0.4 mg sublingual 0.4 mg sublingual Q5M PRN Chest 04/27/19 10/11/24 tablet (Nitrostat) Pain famotidine 20 mg tablet (Pepcid) 20 mg PO BID 06/04/22 10/11/24 lisinopril 10 mg tablet 15 mg PO QPM 06/04/22 10/11/24 metoprolol succinate 25 mg capsule 25 mg PO QAM 08/07/24 10/11/24 sprinkle, ext. release 24 hr multivitamin 1 tab PO QAM 08/07/24 10/11/24 omeprazole 40 mg capsule,delayed 40 mg PO QAM 08/07/24 10/11/24 release Results & Data (ED) Vital Signs Vital Signs - 24 hr 10/11/24 15:22 10/11/24 15:44 10/11/24 15:46 Temperature 36.6 C Temperature Source Temporal Artery Scan Pulse Rate 71 65 Pulse Rate [Apical] 65 Respiratory Rate 18 20 Respiratory Effort / Characteristics Non-Labored Respiratory Depth Normal Blood Pressure 182/74 H Blood Pressure [Left Arm] 173/95 H Blood Pressure Mean 110 Blood Pressure Mean [Left Arm] 121 Pulse Oximetry 98 99 Oxygen Delivery Method Room Air Room Air Sepsis Recent Fever Within 48 Hours No Sepsis New/Unexplained Change in Mental Status No Sepsis Action Taken by Nursing No Action Required 10/11/24 15:59 Temperature Temperature Source Pulse Rate Pulse Rate [Apical] Respiratory Rate Respiratory Effort / Characteristics Respiratory Depth Blood Pressure Blood Pressure [Left Arm] Blood Pressure Mean Blood Pressure Mean [Left Arm] Pulse Oximetry 98 Oxygen Delivery Method Room Air Sepsis Recent Fever Within 48 Hours Sepsis New/Unexplained Change in Mental Status Sepsis Action Taken by Nursing Laboratory Data 10/11/24 15:42 10/11/24 15:42 Lab Results 10/11/24 Range/Units 15:42 WBC 4.76 L (4.8-10.8) K/ul RBC 4.52 L (4.70-6.10) M/uL Hgb 13.9 L (14.0-18.0) g/dl Hct 41.8 L (42.0-52.0) % MCV 92.5 (80.0-100.0) fL MCH 30.8 (25.0-34.0) pg MCHC 33.3 (32.0-36.0) g/dL RDW Std Deviation 42.9 (36.4-46.3) fL RDW Coeff of Grazyna 12.5 (11.5-14.5) % Plt Count 189 (130-400) K/uL MPV 10.2 (9.4-12.4) fL Immature Gran % (Auto) 0.4 % Neut % (Auto) 51.1 % Lymph % (Auto) 30.7 % [place] % (Auto) 11.3 % Eos % (Auto) 5.7 % Baso % (Auto) 0.8 % Neut # (Auto) 2.43 (1.40-6.50) K/uL Lymph # (Auto) 1.46 (1.20-3.40) K/uL [place] # (Auto) 0.54 (0.11-0.59) K/uL Eos # (Auto) 0.27 (0.00-0.50) K/uL Baso # (Auto) 0.04 (0.00-0.20) K/uL Immature Gran # (Auto) 0.02 (0.01-0.20) K/uL PT 10.6 (9.0-12.0) Seconds INR 1.0 (0.9-1.1) Sodium 137 (136-145) mmol/L Potassium 3.9 (3.5-5.1) mmol/L Chloride 106 (98-107) mmol/L Carbon Dioxide 29 (21-32) mmol/L Anion Gap 2 L (3-11) BUN 19 (6-23) mg/dl Creatinine 1.14 (0.6-1.4) mg/dl Est Cr Clr Drug Dosing 64.8 ml/min eGFR 65.83 BUN/Creatinine Ratio 16.7 (10-20) Glucose 100 H (70-99(Fasting)) mg/dl Calcium 9.1 (8.6-10.3) mg/dl Total Bilirubin 0.6 (0.2-1.0) mg/dl AST 20 (13-39) U/L ALT 14 (7-52) U/L Alkaline Phosphatase 65 (34-104) U/L Troponin I High Sens 95.1 H* (0-20) pg/ml B-Natriuretic Peptide 101 H (0-100) pg/ml Total Protein 6.8 (6.0-8.3) gm/dl Albumin 4.3 (3.4-5.0) gm/dl Globulin 2.5 (2.5-4.0) gm/dl Albumin/Globulin Ratio 1.7 (0.9-2) Lipase 29 (11-82) U/L Imaging Data Radiologist's Impression: Chest X-Ray 10/11/24 15:59 EXAM: XR chest 1V portable CLINICAL HISTORY: Chest pain, nonspecific. TECHNIQUE: X-ray images of the chest were obtained in anterior-posterior projection. COMPARISON: CT chest dated 06/14/2022. FINDINGS: Pulmonary Parenchyma: Small left lower lung zone opacity partially obscures the heart apex, subsegmental atelectasis versus consolidation. (unchanged) Enlarged right hilum and prominent vessels in both lower lung zones, more on the right side. (unchanged) No evidence of collapse, or pulmonary nodules. Blunted both costophrenic angles, minimal pleural effusion or pleural thickening. (unchanged) Heart and Mediastinum: Heart size and shape are normal. No mediastinal widening or masses. No hilar or mediastinal lymphadenopathy. Bony Thorax: The bony thorax appears intact without fractures or deformities. Sternostomy wiers are still seen. Soft Tissues: Soft tissues overlying the chest wall are unremarkable. IMPRESSION: 1. Small left lower lung zone opacity partially obscures the heart apex, subsegmental atelectasis versus consolidation. (unchanged) 2. Enlarged right hilum and prominent vessels in both lower lung zones more on the right side. (unchanged) 3. No evidence of collapse, or pulmonary nodules. 4. Blunted both costophrenic angles, with minimal pleural effusion or pleural thickening. (unchanged) Electronically signed by Cameron Andrew 10-11-2024 5:10 PM Discharge Plan Visit Data Chief Complaint: Chest Pain Stated Complaint: CHEST PRESSURE ED Provider: Sophie Ibrahim Discharge Problem: Chest pain, Non-ST elevation IN (NSTEMI) Forms Stand Alone Forms: [facility] [employer] Prescriptions Prescriptions: No Action Praluent Pen 150 mg/mL pen injector 150 mg SQ Q14D aspirin [Adult Aspirin Regimen] 81 mg tablet,delayed release (DR/EC) 81 mg PO QAM nitroglycerin [Nitrostat] 0.4 mg tablet, sublingual 0.4 mg SL Q5M PRN (Reason: Chest Pain) lisinopril 10 mg Tablet 15 mg PO QPM famotidine [Pepcid] 20 mg Tablet 20 mg PO BID multivitamin Tablet 1 tab PO QAM metoprolol succinate 25 mg Capsule,Sprinkle,Er 24hr 25 mg PO QAM omeprazole 40 mg Capsule,Delayed Release(Dr/Ec) 40 mg PO QAM Referrals Referrals: [facility] [Primary Care Provider] -
[2024-10-11 16:39] LABS: Troponin I High Sensitivity 95.1 pg/ml (0-20)
[2024-10-11 16:40] LABS: Prothrombin Time 10.6 Seconds (9.0-12.0)
--- NOTE | 2024-10-11 17:10 | XRay Report ---
EXAM: XR chest 1V portable CLINICAL HISTORY: Chest pain, nonspecific. TECHNIQUE: X-ray images of the chest were obtained in anterior-posterior projection. COMPARISON: CT chest dated 06/14/2022. FINDINGS: Pulmonary Parenchyma: Small left lower lung zone opacity partially obscures the heart apex, subsegmental atelectasis versus consolidation. (unchanged) Enlarged right hilum and prominent vessels in both lower lung zones, more on the right side. (unchanged) No evidence of collapse, or pulmonary nodules. Blunted both costophrenic angles, minimal pleural effusion or pleural thickening. (unchanged) Heart and Mediastinum: Heart size and shape are normal. No mediastinal widening or masses. No hilar or mediastinal lymphadenopathy. Bony Thorax: The bony thorax appears intact without fractures or deformities. Sternostomy wiers are still seen. Soft Tissues: Soft tissues overlying the chest wall are unremarkable. IMPRESSION: 1. Small left lower lung zone opacity partially obscures the heart apex, subsegmental atelectasis versus consolidation. (unchanged) 2. Enlarged right hilum and prominent vessels in both lower lung zones more on the right side. (unchanged) 3. No evidence of collapse, or pulmonary nodules. 4. Blunted both costophrenic angles, with minimal pleural effusion or pleural thickening. (unchanged) Electronically signed by Cameron Andrew 10-11-2024 5:10 PM
--- NOTE | 2024-10-11 17:42 | History & Physical Report ---
Date of Service October 11, 2024 Assessment & Plan (1) Unstable angina: Plan: No acute EKG changes. He is currently pain-free. Troponin is mildly elevated. Heparin drip has been ordered along with topical nitrates. Continue aspirin, metoprolol. Telemetry. Cardiology consultation. Cardiac echo was ordered and pending. (2) Benign essential hypertension: Plan: He currently takes metoprolol and lisinopril. Stable (3) History of peptic ulcer disease: Plan: History of gastric ulceration in the past. Currently on Pepcid and omeprazole. (4) Hyperlipidemia: Plan: He currently takes alirocumab for cholesterol management Plan Awaiting cardiology consultation and recommendations. He has requested transfer to the [facility] if any invasive procedures are recommended. History of Present Illness Chief Complaint: Recurrent chest pain with activity Primary Care Provider: [facility] 79-year-old white male with past history of KS, coronary artery disease, coronary artery bypass grafting. He has been experiencing exertional chest discomfort described as substernal chest heaviness with occasional radiation to the arms and neck area and relieved with rest. He took sublingual nitroglycerin with relief earlier today, October 11. EKG reveals no acute changes. Troponin is mildly elevated at 95 however. He currently is pain-free. His symptoms are consistent with unstable angina and heparin drip has been ordered along with topical nitrates. Cardiac echo is ordered and pending and cardiology consultation has also been requested. He has requested that if any invasive procedures need to be undertaken, he should be transferred to MD in [place] for further testing. Allergies Allergy/AdvReac Type Severity Reaction Status Date / Time adhesive tape Allergy Mild Unknown Verified 08/10/24 07:55 fluvastatin Allergy Mild Unknown Verified 08/10/24 07:55 lovastatin [From Mevacor] Allergy Mild Unknown Verified 08/10/24 07:55 pravastatin Allergy Mild Unknown Verified 08/10/24 07:55 rosuvastatin [From Crestor] Allergy Mild Unknown Verified 08/10/24 07:55 simvastatin [From Zocor] Allergy Mild Unknown Verified 08/10/24 07:55 [id number] Reductase Allergy Mild Cramping Verified 08/10/24 07:55 Inhibitor of the Muscles prednisone Allergy Unknown Unknown Verified 08/10/24 07:55 azithromycin [From Zithromax] AdvReac Intermediate Vomiting Verified 08/10/24 07:55 niacin AdvReac Intermediate HEAT Verified 08/10/24 07:55 FLASHES ezetimibe [From Zetia] AdvReac Mild Muscle Pain Verified 08/10/24 07:55 Home Medications Medication Instructions Recorded Confirmed Type alirocumab 150 mg/mL subcutaneous 150 mg subcut Q14D 04/27/19 10/11/24 History pen injector (Praluent Pen) aspirin 81 mg tablet,delayed 81 mg PO QAM 04/27/19 10/11/24 History release (Adult Aspirin Regimen) nitroglycerin 0.4 mg sublingual 0.4 mg sublingual Q5M PRN Chest 04/27/19 10/11/24 History tablet (Nitrostat) Pain famotidine 20 mg tablet (Pepcid) 20 mg PO BID 06/04/22 10/11/24 History lisinopril 10 mg tablet 15 mg PO QPM 06/04/22 10/11/24 History metoprolol succinate 25 mg capsule 25 mg PO QAM 08/07/24 10/11/24 History sprinkle, ext. release 24 hr multivitamin 1 tab PO QAM 08/07/24 10/11/24 History omeprazole 40 mg capsule,delayed 40 mg PO QAM 08/07/24 10/11/24 History release Past Med/Surg History Problem List (Updated 10/11/24 @ 17:40 by Alden Feldman MD) Hyperlipidemia History of peptic ulcer disease Unstable angina Non-ST elevation [place] (NSTEMI) (Acute) Chest pain (Acute) Abdominal pain (Acute) Bronchitis (Acute) Post-operative pain (Acute) Lab test negative for COVID-19 virus (Acute) Cholelithiasis (Acute) Stomach ulcer High cholesterol Arthritis Incisional hernia (Acute) Multiple fractures of ribs of left side (Acute) Small intestinal bacterial overgrowth Bloating (Chronic) Coronary artery disease with hx of myocardial infarct w/o hx of CABG (Chronic) Benign essential hypertension (Chronic) Substernal chest pain (Acute) Medical History CAD (coronary artery disease) Hx of fracture of rib (2019) left Hx of cholelithiasis surgery Hx of bronchitis (2021) Bloating Benign essential hypertension Hx of chest pain Renal artery stenosis monitored by pcp, recently had [facility] scan at [facility] 08/06/23 Hx of myocardial infarction (2016) cabg Hx of aortic aneurysm (2020) surgery 2020 Fuchs' corneal dystrophy of both eyes Osteoarthritis Degenerative disc disease Hx of gastric ulcer GERD (gastroesophageal reflux disease) Hyperlipidemia Diverticulosis of colon Surgical History Hx of hernia repair incisional hernia from AAA repaired History of bilateral cataract extraction Hx of cholecystectomy H/O oral surgery x5 molars removed Status post surgery (04/05/22) interventional radiology at [facility] April 05, 2022 had a drain placed for his infected gallbladder History of esophagogastroduodenoscopy (EGD) History of surgical procedure on eye proper using laser History of cardiac cath x3 --> states 4 stents total- MD in [place]- follows with cardio Biju __ MD in [place](10/2023) 2017- cabg x 3 H/O colonoscopy (~2018) History of knee replacement (~2009) bilateral S/P AAA repair (2020) [facility]. follows with Cardiology MD in [place]. History of coronary artery bypass [facility] ([facility]2016[facility]. Family History Other No family history of adverse response to anesthesia Social History Smoking Status: Former smoker Tobacco Type: Cigarettes Second Hand Exposure: No; Do You Dip or Chew Tobacco: No; Hx Alcohol Use: Yes Alcohol type: beer Alcohol Intake Frequency: 2-4 x/Month Hx Substance Use: No Preferred Language: Persian Communication Ability: Effective Transportation Consultant Required: No Beliefs That Will Affect Care: None marital status: / Current Living Situation: Significant Other Current Living Situation Comment: Irina-friend current occupational status: retired How many Children do You have: 2 Feels Safe at Home: Yes Diet: regular during the past year weight has: remained stable Assistive Devices: Denture - Upper, Glasses and Hearing Aid - Bilateral Review of Systems 2 Review of Systems: Constitutionalno fever or chills ENTno blurred vision, no double vision, no epistaxis, no sore throat Respiratoryno cough, no wheezing, no shortness of breath Cardiacno palpitations, no syncope. He does have symptoms of chest discomfort with exertion consistent with unstable angina Bob nausea, vomiting, diarrhea, melena, hematochezia GUno urinary retention, no urinary incontinence, no dysuria, no hematuria Musculoskeletalno joint pain, no muscle tenderness Skinno bruising, no rashes, no pruritus Neurono isolated weakness, no paresthesia, no weakness Psychno depression, no anxiety Physical Exam 2 Physical Exam: General-alert and oriented x3, no fever, no chills HEENT-head atraumatic and normocephalic, pupils equal and reactive to light, extraocular muscles intact Neck-no lymphadenopathy or thyromegaly, trachea midline Chest-clear to auscultation. No rales, wheezing or rhonchi Cardiac-regular rate and rhythm, normal S1 and S2 Abdomen-normal bowel sounds, no hepatosplenomegaly Extremities-no cyanosis, clubbing, or edema Neuro-cranial nerves II through XII intact, motor and sensory function within normal limits, strength symmetrical, no focal deficits Psych-normal affect, normal mood Results & Data Results & Data Vital Signs (Past 12 Hours) Vital Signs Temp Pulse Pulse Resp BP BP Pulse Ox 10/11/24 15:59 98 10/11/24 15:46 65 10/11/24 15:44 65 20 173/95 H 99 10/11/24 15:22 36.6 C 71 18 182/74 H 98 O2 Del Method 10/11/24 15:59 Room Air 10/11/24 15:46 10/11/24 15:44 Room Air 10/11/24 15:22 Room Air Laboratory Results 10/11/24 15:42 10/11/24 15:42 Code Status & VTE Plan Code Status Full code PG Care Time/CCT Total # of Minutes Spent Total Time Spent with Patient: Total time spent is greater than 50% in coordination of care (as documented) at patient's floor/unit and/or counseling patient: Coding Level of Care Code 52509 INT INP/OBS CARE 3/75MIN Diagnoses Unstable angina I20.0 Benign essential hypertension I10 History of peptic ulcer disease Z87.11 Hyperlipidemia E78.5
[2024-10-11] MEDS: HEPARIN 25000 UNIT/500 ML D5W 25,000 UNITS/500 ML BAG IV SCH (17:55)
[2024-10-11] MEDS: HEPARIN SOD (PORCINE) 1000 UNIT/ML IV ONE (17:55)
[2024-10-11] MEDS: NITROGLYCERIN 2% OINTMENT 30GM TUBE EXT SCH (17:56)
[2024-10-11] MEDS: Heparin IV Adult Wt-Based Standard w/ INITIAL Bolus Protocol IV STA (17:59)
[2024-10-11] MEDS ORDERED: ACETAMINOPHEN 325 MG TAB PO PRN (20:33)
[2024-10-11] MEDS ORDERED: ONDANSETRON INJ 2 MG/ML 2 ML VIAL IV PRN (20:33)
[2024-10-11] MEDS ORDERED: NITROGLYCERIN SL 0.4 MG/TAB TAB SL PRN (20:33)
[2024-10-11] MEDS: FAMOTIDINE 20 MG TAB PO SCH (21:41)
[2024-10-11] MEDS: METOPROLOL SUCC 25MG EXT REL TAB PO SCH (22:38)
[2024-10-12 01:45] LABS: ANTI-Xa, UFH(UnfractionatedHep 0.88 IU/ml (0.3-0.7)
--- NOTE | 2024-10-12 08:21 | Hospitalist Progress Note ---
Date of Service October 12, 2024 Assessment & Plan (1) Unstable angina: (2) Benign essential hypertension: (3) History of peptic ulcer disease: (4) Hyperlipidemia: Plan New onset of chest pressure when walking in the 2 days prior to admission. #Unstable angina Patient was chest pain-free at time of admission Troponin trend 95->95->93->76-> 58 EKG on admission revealed NSR at 60 bpm; QTc 400 Echocardiogram on 10/12 revealed LVEF at 60 to 65% with no wall motion abnormalities Heparin IV started in the ED Cardiology consult appreciated Currently on heparin IV Continue aspirin 81 mg daily #HTN Metoprolol succinate 25 mg p.o. QAM Lisinopril 15 mg p.o. QAM #HLD Alirocumab for cholesterol control #History of peptic ulcer disease / GERD Patient does endorses that burping and passing gas tends to alleviate his chest/epigastric pressure; GERD remains in the DDx Continue famotidine, omeprazole Disposition: Continued stay on PCU telemetry pending cardiology evaluation Heart healthy diet VTE PPx: Heparin IV Admission and Anticipated Discharge Date Admission Date: October 11, 2024 Richard Graves reports he is chest pain-free this morning. He slept well last night, and reports he was able to ambulate down the hallway this morning without SOB or chest pain. Initially, the patient presented for worsening chest pressure over the past 2 weeks, with an acute exacerbation over the past 2 days. He does have a history of GERD and abdominal bloating, and normally when he is able to burp or pass gas his pain improves. However, in the 2 days prior to admission, he felt that the pain was constant and atypical for him. Normally he tries to walk 1 mile per day, but reports that the chest pressure would emerge during his walks. He also experienced TAYLOR while walking up steps, which was new for him. He denies any recurrence of chest pain at rest. Additionally, he had a brief episode of severe pain/aching in his right neck and shoulder 2 nights ago. Patient reports that he had a bowel movement this morning. He also reports that he passed gas yesterday which significantly improved his pain/pressure. He does have significant cardiac history; history of triple bypass in 2017 s/p 4 KACEY; history of AAA repair in 2020. He denies prior history of CHF or A-fib. No recent falls or injuries to the chest wall. Patient reports he was able to ambulate in the hallway today without recurrence of chest pain, chest pressure, or TAYLOR. Furthermore, did discuss patient's CODE STATUS at bedside, and he reports that he is currently a DNR/DNI, and would not want to be on mechanical ventilator under any circumstances. ROS: Patient endorses headache (with patient attributes to nitroglycerin tablets), new onset TAYLOR (resolved), mild tenderness to palpation of the chest wall, and abdominal bloating and tenderness. Patient denies fever, chills, night sweats, chest pain at present, chest palpitations, pleuritic CP, SOB, cough, rashes on the chest wall, tick bites, cough, N/V/D, or changes in urinary bowel habits. Review of Systems Review of Systems: See HPI above Physical Exam Physical Exam: General: no acute distress; pleasant affect; non-toxic appearing; well- nourished; cooperative; SpO2 98% on RA HEENT: normocephalic, atraumatic; no scleral icterus; PERRLA; vision and hearing intact Neck: supple; no lymphadenopathy; trachea midline Skin: warm, dry without signs of tenting; no cyanosis; no rashes, bruising, lesions, or erythema noted CV: chest wall NTP; left flank is NTP; no rashes or bruising noted on the chest wall or flanks bilaterally; RRR; S1/S2 normal; no murmurs/rubs/gallops; pulses intact and symmetric at radial, DP, and PT Lungs: no acute respiratory distress; symmetrical chest wall expansion; clear breath sounds across all lung mireles w/o adventitious sounds; no wheezing ABD: Soft, NTP; BS present; no rebound/guarding; no distention MSK: no tics or fasciculations; no edema noted in the LEs b/l, nonerythematous Neuro: A&Ox3; normal mood and affect; fluent speech; no focal deficits; sensation intact and symmetric in lower extremities bilaterally Results & Data Results & Data Vital Signs (Past 12 Hours) Vital Signs Temp Pulse Pulse Resp BP Pulse Ox O2 Del Method 10/12/24 07:59 36.6 C 60 18 164/84 H 98 Room Air 10/12/24 07:13 56 L 10/12/24 05:36 114/61 10/12/24 03:19 36.7 C 59 L 17 100/57 L 95 Room Air 10/12/24 02:21 112/61 10/12/24 02:18 Room Air 10/12/24 00:00 36.5 C 66 18 99/52 L 93 Room Air 10/11/24 20:49 36.5 C 82 16 183/102 H 96 Room Air 10/11/24 20:41 69 Laboratory Results Abnormal lab results 10/11/24 10/11/24 10/11/24 Range/Units 15:42 17:50 21:11 WBC 4.76 L (4.8-10.8) K/ul RBC 4.52 L (4.70-6.10) M/uL Hgb 13.9 L (14.0-18.0) g/dl Hct 41.8 L (42.0-52.0) % Heparin Anti-Xa, Unfract (0.3-0.7) IU/ml Anion Gap 2 L (3-11) Glucose 100 H (70-99(Fasting)) mg/dl Troponin I High Sens 95.1 H* 95.2 H* 93.2 H* (0-20) pg/ml B-Natriuretic Peptide 101 H (0-100) pg/ml 10/12/24 10/12/24 Range/Units 01:19 01:30 WBC (4.8-10.8) K/ul RBC (4.70-6.10) M/uL Hgb (14.0-18.0) g/dl Hct (42.0-52.0) % Heparin Anti-Xa, Unfract 0.88 H* (0.3-0.7) IU/ml Anion Gap (3-11) Glucose (70-99(Fasting)) mg/dl Troponin I High Sens 76.0 H* D (0-20) pg/ml B-Natriuretic Peptide (0-100) pg/ml Diagnostic Findings Chest X-Ray 10/11/24 15:59 EXAM: XR chest 1V portable CLINICAL HISTORY: Chest pain, nonspecific. TECHNIQUE: X-ray images of the chest were obtained in anterior-posterior projection. COMPARISON: CT chest dated 06/14/2022. FINDINGS: Pulmonary Parenchyma: Small left lower lung zone opacity partially obscures the heart apex, subsegmental atelectasis versus consolidation. (unchanged) Enlarged right hilum and prominent vessels in both lower lung zones, more on the right side. (unchanged) No evidence of collapse, or pulmonary nodules. Blunted both costophrenic angles, minimal pleural effusion or pleural thickening. (unchanged) Heart and Mediastinum: Heart size and shape are normal. No mediastinal widening or masses. No hilar or mediastinal lymphadenopathy. Bony Thorax: The bony thorax appears intact without fractures or deformities. Sternostomy wiers are still seen. Soft Tissues: Soft tissues overlying the chest wall are unremarkable. IMPRESSION: 1. Small left lower lung zone opacity partially obscures the heart apex, subsegmental atelectasis versus consolidation. (unchanged) 2. Enlarged right hilum and prominent vessels in both lower lung zones more on the right side. (unchanged) 3. No evidence of collapse, or pulmonary nodules. 4. Blunted both costophrenic angles, with minimal pleural effusion or pleural thickening. (unchanged) Electronically signed by Cameron Andrew 10-11-2024 5:10 PM PG Care Time/CCT Total # of Minutes Spent Total Time Spent with Patient: Total time spent is greater than 50% in coordination of care (as documented) at patient's floor/unit and/or counseling patient: Coding [place] [address] SUB INP/OBS CARE 2/35MIN Patient Type Established Medical Decision Making Moderate Complexity Diagnoses Unstable angina I20.0 Benign essential hypertension I10 History of peptic ulcer disease Z87.11 Hyperlipidemia E78.5
[2024-10-12] MEDS ORDERED: METOPROLOL SUCC 25MG EXT REL TAB PO SCH (09:00)
[2024-10-12] MEDS: lisinopril 5 MG TAB PO SCH (09:01)
[2024-10-12] MEDS: MULTIVITAMIN TAB PO SCH (09:01)
[2024-10-12] MEDS: ASPIRIN 81 MG ECTAB PO SCH (09:01)
[2024-10-12] MEDS: PANTOprazole 40 MG TAB PO SCH (09:04)
--- NOTE | 2024-10-12 10:39 | Cardiology Consultation ---
Date of Consultation October 12, 2024 Assessment & Plan (1) Coronary artery disease with exertional angina: (2) Elevated troponin: (3) Benign essential hypertension: (4) Hyperlipidemia: (5) Mild dilation of ascending aorta: (6) CAD (coronary artery disease): (7) History of coronary artery bypass graft x 3: Plan ASSESSMENT/PLAN: 1. Angina: Symptoms are concerning for angina, especially given prior CAD history and abnormal myocardial perfusion study in 2022. He seems to have a stable angina pattern with recent increased frequency but only with more strenuous activities. Cardiac catheterization considered and discussed. After discussion, he prefers medical therapy and to give more thought to coronary angiography. Given hypertension, start amlodipine 5 mg daily which also should offer antianginal benefit. Also start nitrate therapy in the form of isosorbide mononitrate 30 mg daily. He has been well beta blocked. Continue current dose of beta-alena. He prefers that if he should pursue a cardiac catheterization, [facility] He plans on following up with his [place] medical staff manager soon. 911 for angina but does not resolve within 5 minutes of nitroglycerin or for rest symptoms. 2. CAD s/p PCI and then CABG x 3: Angina as above. Continue antiplatelet therapy, aspirin 81 mg daily. Continue beta-alena and MARY inhibitor. Start isosorbide mononitrate and calcium channel alena as above. Statin intolerant. Continue PCSK9 inhibitor. 3. Hypertension: Blood pressure has been consistently elevated at home and while here. Start amlodipine 5 mg daily and continue MARY inhibitor, beta- alena. 4. Dyslipidemia: Statin intolerant. Continue PCSK9 inhibitor. [facility]. 5. Elevated troponin: Very mildly elevated high-sensitivity troponin but no recurrent angina despite ambulation in the hallway. Normal LV systolic function without regional wall motion abnormalities. Discussed pursuing coronary angiography but he would like to hold off for now and prefers medical therapy. Plan as above. 6. Dilated ascending aorta: Ascending aorta is mildly dilated. Avoid strenuous lifting for which the Valsalva maneuver is required. Continue beta-alena. Optimize blood pressure control. Annual surveillance through his primary medical staff manager. 7. Disposition: He prefers to be discharged and to follow-up with his primary medical staff manager while considering potential cardiac catheterization. Recommended very close follow-up with his primary medical staff manager. He is hoping to reschedule his appointment for tomorrow. Plan of care communicated with primary hospitalist service, Anthony Rodgers PA-C. Highly complex medical issues. Thank you for allowing me to participate in the care of your patient. Please call for any other questions or concerns. Sincerely, Sigifredo Hi M.D. History of Present Illness Reason for Consultation: angina Requesting Physician: Alden Feldman MD Attending Physician: Celso Kline History of Present Illness Mr. Navas is a very pleasant 79-year-old gentleman with a history significant for CAD s/p PCI and then CABG x 3 (2016 [facility]), hypertension, dyslipidemia, AAA (repaired 2020), and gastric ulcer disease. He was admitted on 10/11/2024 for concerns of unstable angina. He states that for years he has had "gas buildup" and develops a pressure in his chest and resolves with belching and flatus. Simethicone has also helped. For the past year or so, he has had a substernal chest pressure with exertion only. He walks on his treadmill for 1 mile daily and would sometimes experience such symptoms, with occasional radiation to the jaw. The chest discomfort resolves quickly with rest. For the past few weeks, he has noted increased exertional chest discomfort. On 10/11/2024, he had an episode and took nitroglyce rin which quickly relieved his symptoms. Symptoms recurred later with more exertion and he came to the ER. He received nitroglycerin paste. He has not had any further angina and states that the paste was removed. He has been doing 5 or 6 laps in the hallway today throughout the day and had no chest discomfort. The symptoms remind him of his angina that he had in the past. He had a myocardial perfusion study on 01/11/2023 at this facility and it reported ischemic changes in the inferior, inferolateral, and small apical area. He states that he followed up with cardiology and a cath was discussed but ultimately not performed. He denies any rest angina. Angina only occurs with more strenuous activities but not day-to-day activities. He notes that his blood pressures typically well-controlled at home but more recently has been ranging in the 140s/mid 80s mmHg. He denies melena, hematochezia, hematuria, syncope, near syncope, palpitations, edema. He was scheduled to see [facility] tomorrow. Review of systems: As above. Family History: No known premature CAD. Social history: Quit smoking in 1995. Occasional alcohol. x 2. Lives at home with his significant other. 3 children. Lives in [place]. He was unaccompanied. Allergies Allergy/AdvReac Type Severity Reaction Status Date / Time adhesive tape Allergy Mild Unknown Verified 08/10/24 07:55 fluvastatin Allergy Mild Unknown Verified 08/10/24 07:55 lovastatin [From Mevacor] Allergy Mild Unknown Verified 08/10/24 07:55 pravastatin Allergy Mild Unknown Verified 08/10/24 07:55 rosuvastatin [From Crestor] Allergy Mild Unknown Verified 08/10/24 07:55 simvastatin [From Zocor] Allergy Mild Unknown Verified 08/10/24 07:55 [id number] Reductase Allergy Mild Cramping Verified 08/10/24 07:55 Inhibitor of the Muscles prednisone Allergy Unknown Unknown Verified 08/10/24 07:55 azithromycin [From Zithromax] AdvReac Intermediate Vomiting Verified 08/10/24 07:55 niacin AdvReac Intermediate HEAT Verified 08/10/24 07:55 FLASHES ezetimibe [From Zetia] AdvReac Mild Muscle Pain Verified 08/10/24 07:55 Home Medications Medication Instructions Recorded Confirmed Type alirocumab 150 mg/mL subcutaneous 150 mg subcut Q14D 04/27/19 10/11/24 History pen injector (Praluent Pen) aspirin 81 mg tablet,delayed 81 mg PO QAM 04/27/19 10/11/24 History release (Adult Aspirin Regimen) nitroglycerin 0.4 mg sublingual 0.4 mg sublingual Q5M PRN Chest 04/27/19 10/11/24 History tablet (Nitrostat) Pain famotidine 20 mg tablet (Pepcid) 20 mg PO BID 06/04/22 10/11/24 History lisinopril 10 mg tablet 15 mg PO QPM 06/04/22 10/11/24 History metoprolol succinate 25 mg capsule 25 mg PO QAM 08/07/24 10/11/24 History sprinkle, ext. release 24 hr multivitamin 1 tab PO QAM 08/07/24 10/11/24 History omeprazole 40 mg capsule,delayed 40 mg PO QAM 08/07/24 10/11/24 History release amlodipine 5 mg tablet (Norvasc) 5 mg PO QAM 30 days #30 tabs 10/12/24 Rx isosorbide mononitrate 30 mg 30 mg PO QAM 30 days #30 tabs 10/12/24 Rx tablet,extended release 24 hr Problem List (Updated 10/12/24 @ 17:54 by Jovanny Hi MD) Mild dilation of ascending aorta Elevated troponin Coronary artery disease with exertional angina Hyperlipidemia History of peptic ulcer disease Unstable angina Non-ST elevation NV (NSTEMI) (Acute) Chest pain (Acute) Abdominal pain (Acute) Bronchitis (Acute) Post-operative pain (Acute) Lab test negative for COVID-19 virus (Acute) Cholelithiasis (Acute) Stomach ulcer High cholesterol Arthritis Incisional hernia (Acute) Multiple fractures of ribs of left side (Acute) Small intestinal bacterial overgrowth Bloating (Chronic) Coronary artery disease with hx of myocardial infarct w/o hx of CABG (Chronic) Benign essential hypertension (Chronic) Substernal chest pain (Acute) Patient History Medical History CAD (coronary artery disease) Hx of fracture of rib (2019) left Hx of cholelithiasis surgery Hx of bronchitis (2021) Bloating Benign essential hypertension Hx of chest pain Renal artery stenosis monitored by pcp, recently had CT scan at [facility] 08/06/23 Hx of myocardial infarction (2016) cabg Hx of aortic aneurysm (2020) surgery 2020 Fuchs' corneal dystrophy of both eyes Osteoarthritis Degenerative disc disease Hx of gastric ulcer GERD (gastroesophageal reflux disease) Hyperlipidemia Diverticulosis of colon Surgical History Hx of hernia repair incisional hernia from AAA repaired History of bilateral cataract extraction Hx of cholecystectomy H/O oral surgery x5 molars removed Status post surgery (04/05/22) interventional radiology at [facility] April 05, 2022 had a drain placed for his infected gallbladder History of esophagogastroduodenoscopy (EGD) History of surgical procedure on eye proper using laser History of cardiac cath x3 --> states 4 stents total[facility] [place] with [facility] [place] in [place](10/2023) 2017- cabg x 3 H/O colonoscopy (~2018) History of knee replacement (~2009) bilateral S/P AAA repair (2020) [facility] in [place]. follows with [facility]iology [place] in [place]. History of coronary artery bypass graft x 3 (~2016) [facility] in [place]. Family History Other No family history of adverse response to anesthesia Social History Smoking Status: Former smoker Tobacco Type: Cigarettes Second Hand Exposure: No; Do You Dip or Chew Tobacco: No; Hx Alcohol Use: Yes Alcohol type: beer Alcohol Intake Frequency: 2-4 x/Month Hx Substance Use: No Preferred Language: Turkish Communication Ability: Effective Machine Design Checker Required: No Beliefs That Will Affect Care: None marital status: / Current Living Situation: Spouse Current Living Situation Comment: Irina-friend current occupational status: retired How many Children do You have: 2 Feels Safe at Home: Yes Diet: regular during the past year weight has: remained stable Assistive Devices: None Physical Exam Physical Exam: Gen.: No acute distress. Alert and oriented. HEENT: Anicteric sclera. Neck: No JVD. No bruits. Normal carotid upstrokes bilaterally. Cardiac: Regular. Normal S1-S2. No murmurs, rubs, or gallops. Pulmonary: Clear to auscultation bilaterally without wheezes, rales, or rhonchi. Abdomen: Soft, nontender, nondistended, with normoactive bowel sounds. No bruits noted. Extremities: 2+ radial pulses bilaterally. 2+ posterior tibialis pulses bilaterally. No edema or cyanosis. Psychiatric: Affect appears appropriate. Results & Data Vital Signs (Past 12 Hours) Vital Signs Temp Pulse Pulse Resp BP Pulse Ox O2 Del Method 10/12/24 09:43 Room Air 10/12/24 07:59 36.6 C 60 18 164/84 H 98 Room Air 10/12/24 07:13 56 L 10/12/24 05:36 114/61 10/12/24 03:19 36.7 C 59 L 17 100/57 L 95 Room Air 10/12/24 02:21 112/61 10/12/24 02:18 Room Air 10/12/24 00:00 36.5 C 66 18 99/52 L 93 Room Air Laboratory Results Laboratory Results - last 24 hr 10/11/24 10/11/24 10/12/24 17:50 21:11 01:19 Heparin Anti-Xa, Unfract 0.88 H* Troponin I High Sens 95.2 H* 93.2 H* 10/12/24 10/12/24 10/12/24 01:30 09:07 14:21 Heparin Anti-Xa, Unfract 0.94 H* Troponin I High Sens 76.0 H* D 58.4 H* D 46.9 H D Diagnostic Findings ECHO 10/12/2024: 1. Normal left ventricular size and systolic function. EF 60-65%. No regional wall motion abnormalities. Moderate left ventricular hypertrophy. 2. Mildly dilated right ventricle with normal systolic function. 3. Mild biatrial dilation. 4. Mild aortic regurgitation. 5. Mild mitral regurgitation. 6. Mildly dilated ascending aorta; 4.4 cm. 7. Normal estimated right ventricular systolic pressure. 8. No significant change from prior study on 05/20/2019. Labs reviewed and notable for minimal anemia, stable renal function, normal potassium, normal transaminase levels, peak high-sensitivity troponin of 95. ECG personally reviewed 10/11/2024 at 1536: Sinus 60 bpm. Nonspecific T wave abnormality. History and physical report reviewed. Myocardial perfusion study 01/11/2023 report reviewed as noted above in HPI. Telemetry personally reviewed: Sinus rhythm with sinus bradycardia. Medications Administered Current Inpatient Medications Acetaminophen (Acetaminophen 325 Mg Tab) 650 mg PO Q6H PRN PRN Reason: Headache or Pain Stop: 11/10/24 20:32 Amlodipine Besylate (A[facility]ipine Besylate 5 Mg Tab) [facility] [place]: 11/11/24 16:59 Last Admin: 10/12/24 17:28 Dose: 5 mg Aspirin (Aspirin 81 Mg Ectab) 81 mg PO QAM [facility] Stop: 11/11/24 08:59 Last Admin: 10/12/24 09:01 Dose: 81 mg Famotidine (Famotidine 20 Mg Tab) 20 mg PO BID [facility] Stop: 11/10/24 20:59 Last Admin: 10/12/24 09:06 Dose: 20 mg Heparin Sodium/Dextrose (Heparin 80080 Unit/500 Ml D5w) 25,000 units in 500 mls @ 24 mls/hr IV .[id number] [facility]; Protocol Stop: 11/10/24 17:44 Last Admin: 10/12/24 12:41 Dose: 1,200 units/hr, 24 mls/hr Isosorbide Mononitrate (Isosorbide [place] Extended Rel 30 Mg Tabcr) [facility] Stop: 11/11/24 16:59 Last Admin: 10/12/24 17:28 Dose: 30 mg Lisinopril (Lisinopril 5 Mg Tab) 15 mg PO QAM [facility] Stop: 11/11/24 08:59 Last Admin: 10/12/24 09:01 Dose: 15 mg Metoprolol Succinate (Metoprolol Succ 25mg Ext Rel Tab) 25 mg PO QPM [facility] Stop: 11/10/24 21:59 Last Admin: 10/11/24 22:38 Dose: 25 mg Multivitamins (Multivitamin Tab) 1 tab PO [facility] Stop: 11/11/24 08:59 Last Admin: 10/12/24 09:01 Dose: 1 tab Nitroglycerin (Nitroglycerin Sl 0.4 Mg/Tab Tab) 0.4 mg SL Q5M PRN PRN Reason: Chest Pain Stop: 11/10/24 20:32 Ondansetron HCl (Ondansetron Inj 2 Mg/Ml 2 Ml Vial) 4 mg IV Q4H PRN PRN Reason: Nausea Stop: 11/10/24 20:32 Pantoprazole Sodium (Pantoprazole 40 Mg Tab) 40 mg PO [facility] Stop: 11/11/24 08:59 Last Admin: 10/12/24 09:04 Dose: Not Given PG Care Time/CCT Total # of Minutes Spent Total Time Spent with Patient: Total time spent is greater than 50% in coordination of care (as documented) at patient's floor/unit and/or counseling patient: Coding Level of Care Code 34652 INT INP/OBS CARE 3/75MIN Diagnoses Coronary artery disease with exertional angina I25.118 Elevated troponin R79.89 Benign essential hypertension I10 Hyperlipidemia E78.5 Mild dilation of ascending aorta I77.810 CAD (coronary artery disease) I25.10 History of coronary artery bypass graft x 3 Z95.1
--- NOTE | 2024-10-12 10:40 | XCELERA ---
[id number]
[2024-10-12 11:32] LABS: ANTI-Xa, UFH(UnfractionatedHep 0.94 IU/ml (0.3-0.7)
[2024-10-12 16:40] VITALS: O2SAT 97
[2024-10-12] MEDS: amLODIPine BESYLATE 5 MG TAB PO SCH (17:28)
[2024-10-12] MEDS: ISOSORBIDE MONO EXTENDED REL 30 MG TABCR PO SCH (17:28)
--- NOTE | 2024-10-12 17:40 | Discharge Summary ---
Discharge Summary Date of Service October 12, 2024 Principal Dx & Hospital Course #1 = Principal Diagnosis (1) Unstable angina: (2) Benign essential hypertension: (3) History of peptic ulcer disease: (4) Hyperlipidemia: Plan HPI on day of discharge: Star reports he is chest pain-free this morning. He slept well last night, and reports he was able to ambulate up and down the hallway this morning without recurrence of SOB or chest pain. Initially, the patient presented for episodes of chest pressure over the past 2 weeks, with an acute exacerbation over the past 2 days while walking. He does have a history of GERD and abdominal bloating, and normally when he is able to burp or pass gas his pain improves. However, in the 2 days prior to admission, he felt that the pain was constant and atypical for him. Normally he tries to walk 1 mile per day, but reports that the chest pressure would emerge during his walks. He also experienced TAYLOR while walking up steps, which was new for him. He denies any occurrence of chest pain at rest. Additionally, he had a brief episode of severe pain/aching in his right neck and shoulder 2 nights ago. Patient reports that he had a bowel movement this morning. He also reports that he passed gas yesterday which significantly improved his pain/pressure. He does have significant cardiac history; history of triple bypass in 2017 s/p 4 KACEY; history of AAA repair in 2020. He denies prior history of CHF or A-fib. No recent falls or injuries to the chest wall. Patient reports he was able to ambulate in the hallway today without recurrence of chest pain, chest pressure, or TAYLOR. Furthermore, did discuss patient's CODE STATUS at bedside, and he reports that he is currently a DNR/DNI, and would not want to be on mechanical ventilator under any circumstances. ROS: Patient endorses headache (with patient attributes to nitroglycerin tablets), new onset TAYLOR (resolved), mild tenderness to palpation of the chest wall, and abdominal bloating and tenderness. Patient denies fever, chills, night sweats, chest pain at present, chest palpitations, pleuritic CP, SOB, cough, rashes on the chest wall, tick bites, cough, N/V/D, or changes in urinary bowel habits. PLAN: #Unstable angina IV heparin was started in the ED Patient was chest pain-free at time of admission, and reports no recurrence of chest pain/pressure while ambulating up and down the hallways on 10/12 Troponin trend 95->95->93->76-> 58 -> 46.9 EKG on admission revealed NSR at 60 bpm; QTc 400 Echocardiogram on 10/12 revealed LVEF at 60 to 65% with no wall motion abnormalities Cardiology consult appreciated Will plan to start patient on amlodipine 5 mg and Imdur 30 mg daily for HTN/angina These medications were given the evening of 10/12 BP check approximately 1 hour after administration was 128/75 Continue aspirin 81 mg daily Discussed risks/benefits of returning home with patient Did mention that cardiac catheterization may be needed, which patient expresses a desire to have done at the [facility] [place] Patient also reports he has a follow-up cardiology appointment tomorrow on 10/13, which he was encouraged to attend for close follow-up #HTN Addition of amlodipine and Imdur (as above) Metoprolol succinate 25 mg p.o. QAM Lisinopril 15 mg p.o. QAM #HLD Alirocumab for cholesterol control #History of peptic ulcer disease / GERD Continue famotidine, omeprazole Disposition: Discharge to home with close cardiology follow-up Admission HPI Per Admitting Provider 79-year-old white male with past history of [place], coronary artery disease, coronary artery bypass grafting. He has been experiencing exertional chest discomfort described as substernal chest heaviness with occasional radiation to the arms and neck area and relieved with rest. He took sublingual nitroglycerin with relief earlier today, October 11. EKG reveals no acute changes. Troponin is mildly elevated at 95 however. He currently is pain-free. His symptoms are consistent with unstable angina and heparin drip has been ordered along with topical nitrates. Cardiac echo is ordered and pending and cardiology consultation has also been requested. He has requested that if any invasive p rocedures need to be undertaken, he should be transferred to [facility] in [place] for further testing. Discharge Exam General: no acute distress; pleasant affect; non-toxic appearing; well- nourished; cooperative; SpO2 98% on RA HEENT: normocephalic, atraumatic; no scleral icterus; PERRLA; vision and hearing intact Neck: supple; no lymphadenopathy; trachea midline Skin: warm, dry without signs of tenting; no cyanosis; no rashes, bruising, lesions, or erythema noted CV: chest wall NTP; left flank is NTP; no rashes or bruising noted on the chest wall or flanks bilaterally; RRR; S1/S2 normal; no murmurs/rubs/gallops; pulses intact and symmetric at radial, DP, and PT Lungs: no acute respiratory distress; symmetrical chest wall expansion; clear breath sounds across all lung mireles w/o adventitious sounds; no wheezing ABD: Soft, NTP; BS present; no rebound/guarding; no distention MSK: no tics or fasciculations; no edema noted in the LEs b/l, nonerythematous Neuro: A&Ox3; normal mood and affect; fluent speech; no focal deficits; sensation intact and symmetric in lower extremities bilaterally Discharge Plan Discharge Items Patient Disposition: Home - Self-Care Reason For Visit: Chest pressure Discharge Diagnosis: Unstable angina Condition on Discharge: Good Activity: As commented below Activity Comment: Avoid strenuous activity until seen by cardiology for follow- up Non-emergency contact: Primary Care Provider and Clinical Nursing Coordinator Call non-emergency contact if: you have any medication questions, your symptoms worsen, your pain is not controlled, your pain is worsening, your pain is unusual for you and your pain is concerning for you Follow-up/Referrals: [facility] [Primary Care Provider] - Diet: Heart Healthy Addtl Attending Provider Instructions: You were seen at [facility] from 10/11 to 10/12 for new onset of chest pressure while walking x 2 days. On arrival, you were found to have an elevated high-sensitivity troponin at 95.1. Troponin is a marker of potential heart stress, so it was recommended that you be admitted for a cardiac workup. However, your troponin level trended downward over the course of your hospital stay and is currently 46.9 at time of discharge. Given downtrending troponin, no recurrence of chest pressure/pain, and no acute changes found on echocardiogram or EKG, he was found to be safe for discharge home with close cardiology follow-up. 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 You have been prescribed 2 new medications (amlodipine 5 mg p.o. every morning; and isosorbide mononitrate 30 mg p.o. every morning). These have been sent to your pharmacy at the [facility] [place]. Potential side effects include lightheadedness, dizziness, nausea, flushing, drowsiness, and fatigue. Please follow-up with your PCP for blood pressure control. If you develop any new or concerning symptoms (which include but are not limited to chest pain, chest pressure, chest palpitations, or new onset of jaw or shoulder pain) please return to the emergency department immediately. It was a pleasure taking care of you, please reach out with any questions or concerns. Pending Studies at Discharge: No Stand-Alone Forms: My [facility], Smoking Cessation Medications and DC Order Prescriptions: New isosorbide mononitrate 30 mg Tablet Extended Release 24 Hr 30 mg PO QAM 30 Days Qty: 30 0RF Rx Instructions: Take 1 tablet by mouth daily amlodipine [Norvasc] 5 mg Tablet 5 mg PO QAM 30 Days Qty: 30 0RF Rx Instructions: Take 1 tablet by mouth daily Continued Praluent Pen 150 mg/mL pen injector 150 mg SQ Q14D aspirin [Adult Aspirin Regimen] 81 mg tablet,delayed release (DR/EC) 81 mg PO QAM nitroglycerin [Nitrostat] 0.4 mg tablet, sublingual 0.4 mg SL Q5M PRN (Reason: Chest Pain) famotidine [Pepcid] 20 mg Tablet 20 mg PO BID multivitamin Tablet 1 tab PO QAM metoprolol succinate 25 mg Capsule,Sprinkle,Er 24hr 25 mg PO QAM omeprazole 40 mg Capsule,Delayed Release(Dr/Ec) 40 mg PO QAM Changed lisinopril 10 mg Tablet 15 mg PO QAM Qty: 0 0RF Krames/Other Patient Handouts: Unstable Angina, Discharge Instructions for Angina Admission Data Admit Date/Time: 10/11/24 17:25 Attending Provider: Celso Kline Admit Provider: Alden Feldman Primary Care Provider: [facility] Other Providers: Alden Feldman; Ap Lockett; Antony Alexander; Cuco Flowers; Kyle Squires; Sang Gaming; Negro Smith Jr; Jovanny Hi; Francine Anand; Michelle Andrade; Roberto Will; Roberto Jackson; Alden Henderson; Ro Champagne; Bartolo Mayo; Angie Bergman; Bartolo Philip; Matthew Stephens; Gama Dodson; [facility],Hospital Hospital Stay Data Consultations 10/11/24 16:59 ED Decision to Admit Stat 10/11/24 20:33 Consult Cardiology Routine Pending Results Patient Have Any Pending Studies at Discharge: No Discharge Instructions Given to Patient (Per Discharging Provider) You were seen at [facility] from 10/11 to 10/12 for new onset of chest pressure while walking x 2 days. On arrival, you were found to have an elevated high-sensitivity troponin at 95.1. Troponin is a marker of potential heart stress, so it was recommended that you be admitted for a cardiac workup. However, your troponin level trended downward over the course of your hospital stay and is currently 46.9 at time of discharge. Given downtrending troponin, no recurrence of chest pressure/pain, and no acute changes found on echocardiogram or EKG, he was found to be safe for discharge home with close cardiology follow-up. 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 You have been prescribed 2 new medications (amlodipine 5 mg p.o. every morning; and isosorbide mononitrate 30 mg p.o. every morning). These have been sent to your pharmacy at the [facility] [place]. Potential side effects include lightheadedness, dizziness, nausea, flushing, drowsiness, and fatigue. Please follow-up with your PCP for blood pressure control. If you develop any new or concerning symptoms (which include but are not limited to chest pain, chest pressure, chest palpitations, or new onset of jaw or shoulder pain) please return to the emergency department immediately. It was a pleasure taking care of you, please reach out with any questions or concerns. Total Time Total Time Spent Total Time Spent (In Minutes): 45 Coding [place] [address] INP/OBS DISCH >30 MIN Patient Type Established History Comprehensive Exam Comprehensive Medical Decision Making Moderate Complexity Diagnoses Unstable angina I20.0 Benign essential hypertension I10 History of peptic ulcer disease Z87.11 Hyperlipidemia E78.5
[2024-10-12 18:27] VITALS: BP 128/75; RESP 16; TEMP 98.2
[2024-10-12 18:53] VITALS: PULSE 88
--- NOTE | 2024-10-13 05:45 | Electrocardiogram Report ---
Test Reason : Blood Pressure : */* mmHG Vent. Rate : 60 BPM Atrial Rate : 60 BPM P-R Int : 190 ms QRS Dur : 94 ms QT Int : 400 ms P-R-T Axes : -7 3 66 degrees QTcB Int : 400 ms Normal sinus rhythm with sinus arrhythmia Nonspecific T wave abnormality Abnormal ECG When compared with ECG of 14-Jun-2022 02:47, No significant change was found Confirmed by Jovanny Hi ([id number]) on 10/13/2024 5:45:24 AM Referred By: REFERRED SELF Confirmed By: Jovanny Hi
== END 2024-10-12 19:21 | disposition home or self-care (01) | DRG 303 ==
LOC: SUATTDRO → ED 15:17 → 2S 17:25 → SUATTDRO 17:25 → 2S 20:43